=== PATIENT | female | born 1980 | race Caucasian/White ===

== ENCOUNTER → 2016-08-27 | Outpatient (CLI) | payer BC ==
[~2016-08-27] MED LIST: ADAL1KIT INJ; AYG/5 PO; DICL1SOL6 TOP; EPP3/2 IM; IBUP-103 PO; METH4TAB31 PO; MULT-506 PO; OXYC-57 PO; VNTHFA/IN INH
[2016-08-27 13:31] LABS: BASO % 0.1 %; BASO ABS # 0.01 K/uL (0-0.2); COMPLETE YES; IG% 0.3 %; LYMPH % 14.9 %; LYMPH ABS # 1.71 K/uL (1.2-3.4); MEAN CELL VOLUME 89.7 fL (80-100); MEAN CORPUSCULAR HEMOGLOBIN 31.7 pg (25-34); MEAN CORPUSCULAR HGB CONC 35.4 g/dl (32-36); MEAN PLATELET VOLUME 9.8 fL (7.4-10.4); NEUT % 81.7 %; PLATELET COUNT 261 K/uL (130-400); RED BLOOD COUNT 4.57 M/uL (4.2-5.4); WHITE BLOOD COUNT 11.47 K/uL (4.8-10.8)
[2016-08-27 13:48] LABS: ALT/SGPT 18 U/L (12-78); BLOOD UREA NITROGEN 15 mg/dl (7-18); BUN/CREATININE RATIO 22.6 (10-20); CALCIUM 8.9 mg/dl (8.5-10.1); CARBON DIOXIDE 23 mmol/L (21-32); CHLORIDE 108 mmol/L (98-107); CHOLESTEROL 230 mg/dl (0-200); CREATININE 0.66 mg/dl (0.60-1.20); GLUCOSE 117 mg/dl (70-99); POTASSIUM 4.8 mmol/L (3.5-5.1); SODIUM 141 mmol/L (136-145)
[2016-08-27 13:55] LABS: ALKALINE PHOSPHATASE 78 U/L (45-117); AST/SGOT 10 U/L (15-37); CHOLESTEROL/HDL RATIO 2.6; HDL CHOLESTEROL 90 mg/dl; LDL CHOLESTEROL CALCULATED 130 mg/dl; TRIGLYCERIDES 48 mg/dl (0-150); VERY LOW DENSITY LIPOPROT CALC 10 mg/dl
[2016-08-28 05:43] LABS: ESTIMATED AVERAGE GLUCOSE 97 mg/dl; HA1C FLAG Normal (Normal)
== END | disposition home or self-care (01) ==
LOC: C.LABBC 11:13
PROVIDERS: ATTEND Internal Medicine Geriatric Medicine
DX: R73.9 Hyperglycemia, unspecified (principal); M06.9 Rheumatoid arthritis, unspecified

== ENCOUNTER → 2016-11-17 | Outpatient (CLI) | payer BC ==
[~2016-11-17] MED LIST changes: +ACET-1256 PO; +ACET-24 PO; +HYG25 PO; +METH1TAB81 PO; +NRV5 PO; +RBX500 PO; +SPR25 PO; +VTMD1000 PO
== END ==
LOC: C.PATHSPEC 17:39
PROVIDERS: ATTEND Orthopaedic Surgery Sports Medicine
DX: M06.9 Rheumatoid arthritis, unspecified (principal); M65.9 Synovitis and tenosynovitis, unspecified

== ENCOUNTER → 2017-01-27 | Outpatient (CLI) | payer BC ==
[~2017-01-27] MED LIST changes: -ACET-1256 PO; -ACET-24 PO; -NRV5 PO; -RBX500 PO; -SPR25 PO; -VTMD1000 PO
--- NOTE | 2017-01-27 13:07 | MAMMOGRAPHY REPORT ---
BILATERAL DIGITAL DIAGNOSTIC MAMMOGRAM TOMOSYNTHESIS WITH CAD AND TARGETED RIGHT ULTRASOUND: 7 CLINICAL HISTORY: 36-year-old woman presents with a BB sized lump under the right breast that she not iced since June 2016. She reports that has slightly increased and is now pea-sized; it is also p ainful and there is surrounding redness. No nipple discharge. Family history of breast cancer = wisam ta grandmother. Patient on chronic steroids for arthritis. TECHNIQUE: Bilateral breast tomosynthesis in addition to standard 2D mammography was performed. Curre nt study was also evaluated with a Computer Aided Detection (CAD) system. COMPARISON: Comparison is made to exams dated: 10/23/2015 ultrasound and 10/23/2015 mammogram - [facility]. BREAST COMPOSITION: The tissue of both breasts is heterogeneously dense, which may obscure small mas ses. FINDINGS: A triangular skin palpable marker overlies the lower inner posterior right breast, denoting the palpable lump pointed out by the patient. Possible borders of a 4 mm masses are seen near the t riangle marker and partially obscured by it. No other suspicious mass, focal area of architectural d istortion or suspicious calcifications are identified bilaterally. There is stable focal asymmetry i n the right upper outer quadrant, most likely representing the patient's baseline parenchymal pattern . Targeted ultrasound was performed in the area of palpable lump pointed out by the patient (4:00 right breast, far medial near mid sternal line) no skin erythema is appreciated on visual inspection. On palpation, there is a BB sized firm mass. On ultrasound, there is an intradermal circumscribed hypoe choic mass measuring 4.3 x 3.4 x 4.5 mm and a faint punctum is seen extending towards the dermis. Th is is most compatible with an epidermal inclusion cyst. Conservative therapy with hot compresses and NSAIDs is recommended. IMPRESSION: ACR BI-RADS CATEGORY 2: BENIGN, TARGETED ULTRASOUND ACR BI-RADS CATEGORY 2: BENIGN 1. The palpable lump in the 4:00 medial right breast is most compatible with an epidermal inclusion cyst. Given that it is painful, conservative management with hot compresses and NSAIDs was recommend ed. Continued clinical monitoring is also recommended, as sometimes these lesions do not spontaneous ly resolve and may need surgical excision. 2. No other significant interval change is identified mammographically, without mammographic evidenc e of malignancy. Recommend routine mammography beginning at age 40. These results and recommendations were discussed with the patient at the time of the exam. Approximately 10% of breast cancers are not detected with mammography. A negative mammographic report should not delay biopsy if a clinically suggestive mass is present. Vesta Renteria M.D. ay/:01/27/2017 10:58:06 Wedding Designer: Eliza Aguero, [facility] letter sent: Normal 1/2 BI-RADS Code: ACR BI-RADS Category 2: Benign Ultrasound BI-RADS: ACR BI-RADS Category 2: Benign
== END | disposition home or self-care (01) ==
LOC: C.MAMM 08:42
PROVIDERS: ATTEND Physician Assistant Medical
DX: N63 Unspecified lump in breast (principal); N64.4 Mastodynia

== ENCOUNTER → 2017-02-20 | Outpatient (CLI) | payer BC ==
[~2017-02-20] MED LIST changes: +ACET-1256 PO
== END | disposition home or self-care (01) ==
LOC: C.LABSPEC 17:43
PROVIDERS: ATTEND Physician Assistant
DX: N92.6 Irregular menstruation, unspecified (principal)

== ENCOUNTER → 2017-04-01 | Day surgery (SDC) | payer BC ==
[2017-03-18 15:53] VITALS: Ht 174 cm; Wt 87.3 kg
[~2017-04-01] VITALS: Ht 174 cm; Wt 87.3 kg
[~2017-04-01] MED LIST changes: +ACET-24 PO; +ATROPINE SULFATE 0.1 MG/ML 5ML SYR IV PRN; +BRIMONIDINE TART 0.2% OP SOLN PER DROP CHARGE ONE; +DEXAMETHASONE SOD INJ 4 MG/ML VIAL ONE; +EpHEDrine SULFATE INJ 50 MG/ML AMP IV PRN; +EpINEphrine INJ 1MG/ML AMP 1 MG/ML AMP ONE; +FENTANYL CITRATE INJ 50 MCG/1 ML 2 ML VIAL IV PRN; +FENTANYL CITRATE INJ 50 MCG/1 ML 2 ML VIAL ONE; +IBUPROFEN 600 MG TAB PO PRN; +KETOROLAC TROMETHAMINE 30 MG/ML VIAL IV. PRN; +KETOROLAC TROMETHAMINE 30 MG/ML VIAL ONE; +LACTATED RINGER'S 1000ML 1,000 ML IV SCH; +LIDOCAINE 4% OP SOLN DROP CHARGE ONE; +LIDOCAINE HCL 1% MPF 2 ML VIAL ONE; +LIDOCAINE HCL 2% 2 ML VIAL (20MG/ML) ONE; +LIDOCAINE/EPINEPHRINE 1% INJ 50 ML VIAL ONE; +MIDAZOLAM HCL 1 MG/ML 2ML VIAL ONE; +MOXIFLOXACIN OPH SOLN PER DROP CHARGE ONE; +NRV5 PO; +ONDANSETRON INJ 2 MG/ML 2 ML VIAL IV PRN; +ONDANSETRON INJ 2 MG/ML 2 ML VIAL ONE; +OXYCODONE/ACETAMINOPHEN 5-325 TAB PO PRN; +POVIDONE-IODINE OP SOLN 30 ML BTL ONE; +PROMETHAZINE HCL INJ 25 MG in SODIUM CHLORIDE 0.9% 50ML 50 ML IV PRN; +PROPOFOL IV EMULSION 10 MG/ML 20 ML VIAL IV ONE; +RBX500 PO; +SCOPOLAMINE 1.5 MG TDSY TD ONE; +SODIUM CHLORIDE 0.9% 1000ML 1,000 ML IV SCH; +SPR25 PO; +TOBRAMYCIN/DEXAMETHASONE OPH OINT PER APPLN CHARGE ONE; +VTMD1000 PO
--- NOTE | 2017-04-01 12:17 | History & Physical Bridge - [place] ---
H&P Re-Evaluation Bridge Note: I have examined the patient, reviewed the History & Physical and in the interval since the performance of the History & Physical I have noted the following changes of clinical significance: No changes noted
--- NOTE | 2017-04-01 12:18 | Discharge Instructions ---
Discharge Instructions Date of Service Apr 01, 2017. Admission Reason for Admission: Endometrial Polyp, Leiomyoma Discharge Discharge Diagnosis / Problem: endometrial mass Discharge Goals Goal(s): Routine recovery after surgery Activity Recommendations Activity Limitations: per Instructions/Follow-up section . Instructions / Follow-Up Instructions / Follow-Up ACTIVITY RECOMMENDATIONS: * Avoid tampons, douching, hot tubs, pools, and intercourse until bleeding has stopped. * May shower as usual. * No strenuous activity for 24-48 hours. After 24-48 hours, you may do anything you feel like doing (driving and sports are okay). SPECIAL CARE INSTRUCTIONS: Special Diet: * Mild nausea may occur in the immediate post-operative period. * Take clear liquids such as tea, cola or bouillon until all nausea has subsided; you may then resume your normal diet. Special Care: * Light bleeding and vaginal spotting can last from a few days to 3-4 weeks. Call your doctor if bleeding becomes heavier than the heaviest part of your period. * Check your temperature twice a day for one week. If it goes above 100.4 degrees Fahrenheit (38.0 Celsius), notify your doctor. * Call your doctor's office for an appointment for 6 weeks after your surgery. FOLLOW-UP VISIT: Call your doctor's office for an appointment for 6 weeks after your surgery. Current Hospital Diet Patient's current hospital diet: Discharge Diet Recommended Diet: Regular Diet Pending Studies Studies pending at discharge: no Medical Emergencies . Who to Call and When: Medical Emergencies: If at any time you feel your situation is an emergency, please call 911 immediately. . Non-Emergent Contact Non-Emergency issues call your: Mental Health Orderly . . "Provider Documentation" section prepared by Corey Garcia. . VTE Core Measure Inpt VTE Proph given/why not?: Treatment not indicated
--- NOTE | 2017-04-01 13:54 | [facility] Post Operative Brief Note ---
Immediate Operative Summary Operative Date Apr 01, 2017. Pre-Operative Diagnosis Endometrial Polyp, Leiomyoma Post-Operative Diagnosis Same Procedure(s) Performed Dilatation And Curettage, Hysteroscopy, Polypectomy With Myosure Surgeon Dr. Garcia Film Archivist Surgeon(s) None Estimated Blood Loss 5ml Findings Possible cervical polyp Specimens A.) Endometrial Curettings Drains None Anesthesia Sedation, local Complication(s) None Disposition Recovery Room / PACU
[2017-04-01 14:00] VITALS: TEMP 36.8
--- NOTE | 2017-04-01 14:28 | Anesthesia Progress Nt - [facility] ---
Anesthesia Post Op Note Date & Time Apr 01, 2017 at 14:27 Vital Signs Vital Signs Past 12 Hours Date Time Temp Pulse Resp B/P (MAP) Pulse Ox O2 Delivery O2 Flow Rate FiO2 04/01/17 14:00 36.8 76 16 144/81 (102) 98 Room Air 04/01/17 11:52 37.2 74 16 152/85 (107) 96 Room Air Notes Mental Status: alert / awake / arousable, participated in evaluation Pt Amnestic to Procedure: Yes Nausea / Vomiting: adequately controlled Pain: adequately controlled Airway Patency, RR, SpO2: stable & adequate BP & HR: stable & adequate Hydration State: stable & adequate Anesthetic Complications: no major complications apparent
[2017-04-01 14:35] VITALS: BP 135/84; PULSE 69; O2SAT 97
--- NOTE | 2017-04-01 21:05 | OPERATIVE REPORT ---
DATE OF OPERATION: 04/01/2017 PREOPERATIVE DIAGNOSIS: Possible endocervical polyp. POSTOPERATIVE DIAGNOSIS: Same. PROCEDURE: Hysteroscopy, resection of small endocervical mass. SURGEON: Dr. Garcia. ANESTHETIC: Sedation and local 1% lidocaine with epinephrine. COMPLICATIONS: None. ESTIMATED BLOOD LOSS: 5 mL. LOSSES OF NORMAL SALINE: 170 mL. SPECIMENS: MyoSure specimen of endocervix. DRAINS: None. DISPOSITION: Recovery room. DESCRIPTION OF PROCEDURE: Dung was given sedation anesthetic and prepped and draped in the usual fashion. We injected local anesthetic 1% lidocaine with epinephrine into the cervix and then dilated the cervix after grasping with a single tooth tenaculum. It should be noted, we drained the bladder too with a catheter in and out prior to the procedure. Uterus was slightly anteverted. After dilating the cervix up to a 25 dilator, I visualized with the MyoSure hysteroscope using normal saline as a base solution. I did see some material in the cervix, possibly consistent with a polyp, but it was fairly friable and actually disappeared fairly quickly with touching up the MyoSure. It may have just been tissue, endometrium, polyp. In any case, after sterilely looking around, identifying both tubal ostia, identifying no other pathology in the uterus, a possible indentation of the very fundal area anteriorly of the uterus, possible fibroid; however, not resectable as it was primarily non-intracavitary. Otherwise, again perfectly normal, looked around carefully, had already MyoSure remove the specimen in the cervix. At the end of the procedure, sponge and instrument counts were correct. The patient was sent to recovery room in stable condition. I attest to the content of the Intraoperative Record and any orders documented therein. Any exceptions are noted below. GERMÁND
== END | disposition home or self-care (01) ==
LOC: X.SURG 11:28
PROVIDERS: ATTEND Obstetrics & Gynecology
DX: N84.0 Polyp of corpus uteri (principal); I10 Essential (primary) hypertension; M06.9 Rheumatoid arthritis, unspecified; Z82.49 Family history of ischemic heart disease and other diseases of the circulatory system; Z83.6 Family history of other diseases of the respiratory system; Z84.1 Family history of disorders of kidney and ureter; Z83.3 Family history of diabetes mellitus; Z83.79 Family history of other diseases of the digestive system; Z79.4 Long term (current) use of insulin; Z79.899 Other long term (current) drug therapy

== ENCOUNTER 2017-04-07 16:06 | Emergency (ER) | payer BC ==
[~2017-04-07] VITALS: Ht 175.3 cm; Wt 92.1 kg
[~2017-04-07 16:06] MED LIST changes: -ACET-1256 PO; -ACET-24 PO; -ATROPINE SULFATE 0.1 MG/ML 5ML SYR IV PRN; -AYG/5 PO; -BRIMONIDINE TART 0.2% OP SOLN PER DROP CHARGE ONE; -DEXAMETHASONE SOD INJ 4 MG/ML VIAL ONE; -EPP3/2 IM; -EpHEDrine SULFATE INJ 50 MG/ML AMP IV PRN; -EpINEphrine INJ 1MG/ML AMP 1 MG/ML AMP ONE; -FENTANYL CITRATE INJ 50 MCG/1 ML 2 ML VIAL IV PRN; -FENTANYL CITRATE INJ 50 MCG/1 ML 2 ML VIAL ONE; -HYG25 PO; -IBUPROFEN 600 MG TAB PO PRN; -KETOROLAC TROMETHAMINE 30 MG/ML VIAL IV. PRN; -KETOROLAC TROMETHAMINE 30 MG/ML VIAL ONE; -LACTATED RINGER'S 1000ML 1,000 ML IV SCH; -LIDOCAINE 4% OP SOLN DROP CHARGE ONE; -LIDOCAINE HCL 1% MPF 2 ML VIAL ONE; -LIDOCAINE HCL 2% 2 ML VIAL (20MG/ML) ONE; -LIDOCAINE/EPINEPHRINE 1% INJ 50 ML VIAL ONE; -METH1TAB81 PO; -MIDAZOLAM HCL 1 MG/ML 2ML VIAL ONE; -MOXIFLOXACIN OPH SOLN PER DROP CHARGE ONE; -NRV5 PO; -ONDANSETRON INJ 2 MG/ML 2 ML VIAL IV PRN; -ONDANSETRON INJ 2 MG/ML 2 ML VIAL ONE; -OXYCODONE/ACETAMINOPHEN 5-325 TAB PO PRN; -POVIDONE-IODINE OP SOLN 30 ML BTL ONE; -PROMETHAZINE HCL INJ 25 MG in SODIUM CHLORIDE 0.9% 50ML 50 ML IV PRN; -PROPOFOL IV EMULSION 10 MG/ML 20 ML VIAL IV ONE; -RBX500 PO; -SCOPOLAMINE 1.5 MG TDSY TD ONE; -SODIUM CHLORIDE 0.9% 1000ML 1,000 ML IV SCH; -SPR25 PO; -TOBRAMYCIN/DEXAMETHASONE OPH OINT PER APPLN CHARGE ONE; -VTMD1000 PO
[2017-04-07 16:19] VITALS: TEMP 37; Ht 175.3 cm; Wt 92.1 kg
[2017-04-07 17:38] VITALS: O2SAT 95
[2017-04-07] MEDS ORDERED: EPP3/2 IM (17:42)
[2017-04-07 18:03] LABS: BASO % 0.2 %; BASO ABS # 0.02 K/uL (0-0.2); COMPLETE YES; EOS % 1.3 %; HEMATOCRIT 39.6 % (37-47); IG% 0.1 %; LYMPH % 29.2 %; LYMPH ABS # 2.45 K/uL (1.2-3.4); MEAN CELL VOLUME 92.5 fL (80-100); MEAN CORPUSCULAR HEMOGLOBIN 31.5 pg (25-34); MEAN CORPUSCULAR HGB CONC 34.1 g/dl (32-36); MONO % 8.3 %; NEUT % 60.9 %; PLATELET COUNT 294 K/uL (130-400); RED BLOOD COUNT 4.28 M/uL (4.2-5.4); WHITE BLOOD COUNT 8.39 K/uL (4.8-10.8)
[2017-04-07] MEDS ORDERED: SODIUM CHLORIDE 0.9% 500ML 500 ML IV STA (18:05)
[2017-04-07] MEDS ORDERED: KETOROLAC TROMETHAMINE 30 MG/ML VIAL IV STA (18:05)
[2017-04-07 18:12] LABS: PROTHROMBIN TIME (PATIENT) 10.5 SECONDS (9.0-12.0)
[2017-04-07] MEDS ORDERED: NORETHINDRONE ACETATE 5 MG TAB PO STA (18:20)
--- NOTE | 2017-04-07 18:21 | EMERGENCY ROOM VISIT NOTE ---
History Report prepared by Mallorie: Charlotte Bernal Under the Supervision of: Dr. Conner Tatum M.D. First contact with patient: 17:12 Chief Complaint: VAGINAL BLEEDING Stated Complaint: HEAVY BLEEDING,CLOTTING,POST DNC History of Present Illness The patient is a 36 year old female who presents to the Emergency Room with complaints of persistent vaginal bleeding starting 3 days ago. The patient had a D&C 6 days ago which went well. She had some polyps removed. She did not have much bleeding in the days directly following the procedure. Three days ago, she started having cramping in her left abdomen located near her ovary. That night, she started having some vaginal bleeding. By the next morning, she was soaking 1 pad every 2 hours. She called her doctor today and was told to present to the ED. She is feeling fatigued. She has a history of endometriosis. Source of History: patient Onset: 3 days ago Position: other (vaginal) Symptom Intensity: 1 pad every 2 hours Quality: other (bleeding) Timing: other (persistent) Associated Symptoms: + abdominal pain Review of Systems See HPI for pertinent positives & negatives. A total of 10 systems reviewed and were otherwise negative. Past Medical & Surgical Medical Problems: (1) Pauciarticular juvenile rheumatoid arthritis Surgical Problems: (1) Previous section Family History Patient reports no known family medical history. Social History Smoking Status: Never Smoker Alcohol Use: none Drug Use: none Marital Status: Housing Status: lives with family Occupation Status: employed Current/Historical Medications Scheduled Adalimumab (Humira), 40 MG INJ [id number] Methylprednisolone (Medrol), 4 MG PO BID Multivitamin (Multivitamin), 1 TAB PO QAM Norethindrone Acetate (Aygestin), 1 TAB PO DAILY Scheduled PRN Albuterol Hfa (Ventolin Hfa), 2-4 PUFFS INH Q6H PRN for Shortness of Breath Diclofenac Sodium (Topical) (Pennsaid), 1 APPLN TOP UD PRN for Pain Epinephrine (Epipen), 0.3 MG IM UD PRN for ALLERGIC REACTION Ibuprofen Tab (Advil), 400-600 MG PO Q6H PRN for Pain Oxycodone/Acetaminophen 5MG/325MG (Percocet 5MG/325MG), 1 TABLET PO Q4H PRN for Pain Allergies Coded Allergies: BEE STING (Verified Allergy, Severe, ANAPHYLAXIS, 04/01/17) NO KNOWN DRUG ALLERGIES (Verified Allergy, Unknown, ., 04/01/17) Physical Exam Vital Signs Date Time Temp Pulse Resp B/P (MAP) Pulse Ox O2 Delivery O2 Flow Rate FiO2 04/07/17 19:29 81 18 145/90 97 04/07/17 18:35 70 20 135/84 96 Room Air 04/07/17 18:01 83 04/07/17 17:38 95 Room Air 04/07/17 16:19 37.0 88 20 155/87 97 Room Air Physical Exam GENERAL: Patient is a healthy-appearing well-nourished female HEAD: Normocephalic atraumatic EYES: Ocular movements intact pupils equal and react to light OROPHARYNX mucous membranes are moist no exudates present no erythema or edema present NECK: Supple no nuchal rigidity CHEST: Good equal expansion LUNGS: Clear and equal to auscultation CARDIAC: Normal S1 and S2 ABDOMEN: Soft nontender no guarding BACK: No CVA tenderness PELVIS: Moderate amount of blood in the vaginal vault. EXTREMITIES: No pain upon palpation normal muscle strength in all groups no clubbing cyanosis or edema NEURO: Patient is following commands and answering questions appropriately. Alert and oriented x3 Cranial Nerves 2-12 grossly intact Medical Decision & Procedures Laboratory Results 04/07/17 17:40 Red Blood Count 4.28, Mean Corpuscular Volume 92.5, Mean Corpuscular Hemoglobin 31.5, Mean Corpuscular Hemoglobin Concent 34.1, Mean Platelet Volume 9.0, Neutrophils (%) (Auto) 60.9, Lymphocytes (%) (Auto) 29.2, Monocytes (%) (Auto) 8.3, Eosinophils (%) (Auto) 1.3, Basophils (%) (Auto) 0.2, Neutrophils # (Auto) 5.10, Lymphocytes # (Auto) 2.45, Monocytes # (Auto) 0.70, Eosinophils # (Auto) 0.11, Basophils # (Auto) 0.02 04/07/17 17:40 Test 04/07/17 17:40 04/07/17 19:23 White Blood Count 8.39 K/uL (4.8-10.8) Red Blood Count 4.28 M/uL (4.2-5.4) Hemoglobin 13.5 g/dL (12.0-16.0) Hematocrit 39.6 % (37-47) Mean Corpuscular Volume 92.5 fL (80-100) Mean Corpuscular Hemoglobin 31.5 pg (25-34) Mean Corpuscular Hemoglobin Concent 34.1 g/dl (32-36) Platelet Count 294 K/uL (130-400) Mean Platelet Volume 9.0 fL (7.4-10.4) Neutrophils (%) (Auto) 60.9 % Lymphocytes (%) (Auto) 29.2 % Monocytes (%) (Auto) 8.3 % Eosinophils (%) (Auto) 1.3 % Basophils (%) (Auto) 0.2 % Neutrophils # (Auto) 5.10 K/uL (1.4-6.5) Lymphocytes # (Auto) 2.45 K/uL (1.2-3.4) Monocytes # (Auto) 0.70 K/uL (0.11-0.59) Eosinophils # (Auto) 0.11 K/uL (0-0.5) Basophils # (Auto) 0.02 K/uL (0-0.2) RDW Standard Deviation 41.5 fL (36.4-46.3) RDW Coefficient of Variation 12.2 % (11.5-14.5) Immature Granulocyte % (Auto) 0.1 % Immature Granulocyte # (Auto) 0.01 K/uL (0.00-0.02) Prothrombin Time 10.5 SECONDS (9.0-12.0) Prothromb Time International Ratio 1.0 (0.9-1.1) Activated Partial Thromboplast Time 27.1 SECONDS (21.0-31.0) Partial Thromboplastin Ratio 1.0 Anion Gap 9.0 mmol/L (3-11) Est Creatinine Clear Calc Drug Dose 131.2 ml/min Estimated GFR () 126.1 Estimated GFR (Non- 108.8 BUN/Creatinine Ratio 18.5 (10-20) Calcium Level 8.7 mg/dl (8.5-10.1) Total Bilirubin 0.3 mg/dl (0.2-1) Aspartate Amino Transf (AST/SGOT) 12 U/L (15-37) Alanine Aminotransferase (ALT/SGPT) 13 U/L (12-78) Alkaline Phosphatase 76 U/L (45-117) Total Protein 7.0 gm/dl (6.4-8.2) Albumin 3.3 gm/dl (3.4-5.0) Globulin 3.7 gm/dl (2.5-4.0) Albumin/Globulin Ratio 0.9 (0.9-2) Urine Color YELLOW Urine Appearance CLEAR (CLEAR) Urine pH 5.0 (4.5-7.5) Urine Specific [place] 1.023 (1.000-1.030) Urine Protein NEG (NEG) Urine Glucose (UA) NEG (NEG) Urine Ketones NEG (NEG) Urine Occult Blood 3+ (NEG) Urine Nitrite NEG (NEG) Urine Bilirubin NEG (NEG) Urine Urobilinogen NEG (NEG) Urine Leukocyte Esterase NEG (NEG) Urine WBC (Auto) 1-5 /hpf (0-5) Urine RBC (Auto) 0-4 /hpf (0-4) Urine Hyaline Casts (Auto) 1-5 /lpf (0-5) Urine Epithelial Cells (Auto) 20-30 /lpf (0-5) Urine Bacteria (Auto) NEG (NEG) Urine Test NEG (NEG) Labs reviewed by ED physician. Medications Administered Medications (Trade) Dose Ordered Sig/[place] Route Start Time Stop Time Status Last Admin Dose Admin Ketorolac Tromethamine (Toradol Inj) 30 mg NOW STAT IV 04/07/17 18:05 04/07/17 18:06 DC 04/07/17 18:32 30 MG Sodium Chloride 500 ml @ 999 mls/hr Q31M STAT IV 04/07/17 18:05 04/07/17 18:35 DC 04/07/17 18:32 999 MLS/HR Norethindrone Acetate (Aygestin Tab) 10 mg NOW STAT PO 04/07/17 18:20 04/07/17 18:21 DC 04/07/17 19:17 10 MG ED Course 1720: Past medical records reviewed. The patient was evaluated in room C8. A complete history and physical examination was performed. 1805: NSS 500 ml @ 999 mls/hr IV, Toradol Inj 30 mg IV. 3: I performed a pelvic exam in the presence of a female nurse glass blowing lathe operator. Findings are listed in the exam. 8: I discussed the patient's case with Dr. [place] [facility]. He recommend the patient be started on Aygestin and take ibuprofen as needed. She can follow up in the office as an outpatient. 1819: Aygestin Tab 10 mg PO. 1824: Upon reexamination the patient is resting comfortably. I discussed results and treatment plan with the patient. She verbalizes agreement and understanding. The patient is ready for discharge. Medical Decision Differential diagnosis: Etiologies such as ectopic , dysfunction uterine bleeding, bleeding dyscrasia, trauma, infection, as well as others were entertained. This is a 36-year-old female who presents emergency Department with heavy vaginal bleeding. On physical exam the patient has a moderate amount of blood in the vaginal vault. An IV was established, the patient given Toradol. I did discuss the case with gynecology as the patient has a normal hemoglobin. We both felt that the patient can be placed on Aygestin and can follow-up as an outpatient. Patient and were in agreement with the treatment plan. Medication Reconcilliation Current Medication List: was personally reviewed by me Blood Pressure Screening Patient's blood pressure: Elevated blood pressure Blood pressure disposition: Referred to PCP Consults Time Called: 1814 Consulting Physician: Dr. Garcia [facility] [place] Returned Call: [phone] I discussed the patient's case with him. He recommend the patient be started on Aygestin and take ibuprofen as needed. She can follow up in the office as an outpatient. Impression Primary Impression: Abnormal vaginal bleeding Scribe Attestation The scribe's documentation has been prepared under my direction and personally reviewed by me in its entirety. I confirm that the note above accurately reflects all work, treatment, procedures, and medical decision making performed by me. Departure Information Dispostion Home / Self-Care Prescriptions Norethindrone Acetate (AYGESTIN) 5 Mg Tab 1 TAB PO DAILY for 10 Days, #10 TAB Prov: Conner Tatum MD 04/07/17 Referrals Caesar Mariscal M.D. (PCP) Renny Garcia M.D. Forms HOME CARE DOCUMENTATION FORM, IMPORTANT VISIT INFORMATION, WORK / SCHOOL INSTRUCTIONS Patient Instructions ED Bleed Irregular Vaginal, My [facility] Additional Instructions Follow up with DR Garcia's office Take 600 mg Ibuprofen every 6 hours You have been examined and treated today on an emergency basis only. This is not a substitute for, or an effort to provide, complete comprehensive medical care. It is impossible to recognize and treat all injuries or illnesses in a single emergency department visit. It is therefore important that you follow up closely with Dr Mariscal. Call as soon as possible for an appointment. Thank you for your time and consideration. I look forward to speaking with you again soon. Please don't hesitate to call us if you have any questions.
[2017-04-07 18:29] LABS: BUN/CREATININE RATIO 18.5 (10-20); CALCIUM 8.7 mg/dl (8.5-10.1); CREATININE 0.71 mg/dl (0.60-1.20)
[2017-04-07 18:31] LABS: ALB/GLOB RATIO 0.9 (0.9-2)
[2017-04-07] MEDS ORDERED: AYG/5 PO (18:33)
[2017-04-07 19:29] VITALS: BP 145/90; PULSE 81; O2SAT 97
[2017-04-07 19:37] LABS: URINE APPEARANCE CLEAR (CLEAR); URINE BILIRUBIN NEG (NEG); URINE COLOR YELLOW; URINE EPITHELIAL CELL AUTO 20-30 /lpf (0-5); URINE NITRITE NEG (NEG); URINE SPECIFIC GRAVITY 1.023 (1.000-1.030); UROBILINOGEN NEG (NEG)
[2017-04-07 19:40] LABS: MANUAL MICROSCOPIC REQUIRED? NO; REVIEW REQ? NO
== END 2017-04-07 19:30 | disposition home or self-care (01) ==
LOC: C.EDB 16:07 → C.EDC 19:30
DX: N93.9 Abnormal uterine and vaginal bleeding, unspecified (principal); M08.00 Unspecified juvenile rheumatoid arthritis of unspecified site

== ENCOUNTER 2017-04-23 14:47 | Observation (INO) | payer BC ==
[~2017-04-23] VITALS: Ht 175.3 cm; Wt 91.1 kg
[~2017-04-23 14:47] MED LIST changes: +EPP3/2 IM
[2017-04-23] MEDS ORDERED: METH1TAB81 PO (15:11)
[2017-04-23] MEDS ORDERED: MULT-506 PO (15:11)
[2017-04-23] MEDS ORDERED: HYG25 PO (15:11)
[2017-04-23] MEDS ORDERED: HYDROmorphone INJ 1 MG/ML SYR IV STA ×3 (15:26→18:21)
[2017-04-23] MEDS ORDERED: LABETALOL HCL IV 5 MG/ML 20ML IV STA (15:26)
--- NOTE | 2017-04-23 15:48 | DIAGNOSTIC IMAGING REPORT ---
CHEST ONE VIEW PORTABLE CLINICAL HISTORY: Atypical chest pain COMPARISON STUDY: 01/19/2016 FINDINGS: The cardiac and mediastinal contours are normal. There is no evidence of focal pulmonary consolidation. There is no evidence of failure. No pleural effusions are visualized.[ IMPRESSION: No active disease in the chest. Electronically signed by: Anthony Molina M.D. 04/23/2017 3:46 PM Dictated Date/Time: 04/23/2017 3:46 PM
[2017-04-23 16:03] LABS: BASO % 0.4 %; BASO ABS # 0.04 K/uL (0-0.2); COMPLETE YES; EOS % 3.1 %; HEMATOCRIT 42.3 % (37-47); IG% 0.1 %; LYMPH % 41.1 %; LYMPH ABS # 4.06 K/uL (1.2-3.4); MEAN CELL VOLUME 90.2 fL (80-100); MEAN CORPUSCULAR HGB CONC 35.5 g/dl (32-36); MEAN PLATELET VOLUME 8.9 fL (7.4-10.4); MONO % 9.4 %; NEUT % 45.9 %; PLATELET COUNT 292 K/uL (130-400); RED BLOOD COUNT 4.69 M/uL (4.2-5.4); WHITE BLOOD COUNT 9.87 K/uL (4.8-10.8)
[2017-04-23 16:23] LABS: BLOOD UREA NITROGEN 13 mg/dl (7-18); BUN/CREATININE RATIO 17.5 (10-20); CALCIUM 8.7 mg/dl (8.5-10.1); CARBON DIOXIDE 25 mmol/L (21-32); CHLORIDE 103 mmol/L (98-107); CREATININE 0.73 mg/dl (0.60-1.20); GLUCOSE 91 mg/dl (70-99); POTASSIUM 3.5 mmol/L (3.5-5.1); SODIUM 137 mmol/L (136-145)
[2017-04-23 16:28] LABS: C-REACTIVE PROTEIN 0.36 mg/dl (0-0.29)
--- NOTE | 2017-04-23 16:53 | DIAGNOSTIC IMAGING REPORT ---
CT OF THE HEAD WITHOUT CONTRAST CLINICAL HISTORY: Headache. Hypertension. COMPARISON STUDY: Head CT February 03, 2009 and MRI of the brain September 12, 2010. CT DOSE: 537.48 mGy.cm TECHNIQUE: Helical axial images of the head were obtained without IV contrast. Automated exposure control was utilized for the study. A dose lowering technique was utilized adhering to the principles of ALARA. FINDINGS: No acute intracranial hemorrhage, midline shift or mass effect is present. Brain volume is normal. Ventricular system is normal. Basilar cisterns are patent. There are no extra-axial collections. Rodriguez-white differentiation is maintained. There are no findings to suggest acute dural sinus thrombosis or acute territorial infarct. There are no significant calvarial abnormalities. Visualized portions of the sinuses and mastoid air cells are clear. IMPRESSION: No acute intracranial findings. Electronically signed by: Omar Lira M.D. 04/23/2017 4:52 PM Dictated Date/Time: 04/23/2017 4:50 PM
[2017-04-23] MEDS ORDERED: ONDANSETRON INJ 2 MG/ML 2 ML VIAL IV STA ×2 (17:55→19:14)
[2017-04-23] MEDS ORDERED: METHYLPREDNISOLONE 125 MG VIAL IV STA (17:58)
--- NOTE | 2017-04-23 18:03 | EMERGENCY ROOM VISIT NOTE ---
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 I saw Dr. Mariscal on Thursday for heart fluttering, he started me on a low dose bp med. History of Present Illness The patient is a 36 year old female who presents to the Emergency Room with complaints of OWEN, chest pain and high blood pressure -Today pt describes dull, burning chest pain radiating up up her neck bilaterally -Pt describes a band-like and occipital headache. -Pt describes that she has been having symptoms leading up to today. -Pt says that she was seen by her PCP this week and diagnosed with high BP, started on meds. -Pt says that the chest pain is exacerbated by cough and deep inspiration -Pt has a PMHx of DVT with her first child. -Pt has a PMHx significant for RA. On Medrol and Humira. -Pt says that she has been having headaches and chest pain for the past 2 weeks and was worried it was related to RA. 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 Review of Systems see below Constitutional: No fever, No chills, No sweats Respiratory: No cough, No sputum, No wheezing, No shortness of breath Cardiovascular: + chest pain, No orthopnea, No edema, No palpitations Abdomen: + nausea, + vomiting, No diarrhea, No constipation Past Medical/Surgical History Medical Problems: (1) Chest pain (2) Headache (3) Pauciarticular juvenile rheumatoid arthritis Surgical Problems: (1) Previous section Family History Patient reports no known family medical history. Social History Smoking Status: Never Smoker Alcohol Use: none Drug Use: none Marital Status: Housing Status: lives with family Occupation Status: employed Current/Historical Medications Scheduled Adalimumab (Humira), 40 MG INJ WK Chlorthalidone (Chlorthalidone), 12.5 MG PO DAILY Methylprednisolone (Medrol), 8 MG PO DAILY Multivitamin (Multivitamin), 1 TAB PO DAILY Physical Exam Vital Signs Date Time Temp Pulse Resp B/P (MAP) Pulse Ox O2 Delivery O2 Flow Rate FiO2 04/23/17 19:45 71 97 10/12/17 19:32 171/98 04/23/17 19:30 100 16 97 04/23/17 19:15 70 16 150/91 04/23/17 19:00 77 19 04/23/17 18:45 68 13 04/23/17 17:58 77 20 153/98 97 Room Air 04/23/17 17:36 78 04/23/17 16:50 76 160/94 97 Room Air 04/23/17 16:15 86 20 160/106 98 Room Air 04/23/17 14:55 37.1 87 18 202/130 94 Room Air Physical Exam See below General Appearance: WD/WN, + mild distress Head: normocephalic, atraumatic Eyes: normal inspection, PERRL, EOMI, sclerae normal Neck: supple, no adenopathy Respiratory/Chest: chest non-tender, lungs clear, normal breath sounds, no respiratory distress, no accessory muscle use Cardiovascular: regular rate, rhythm, no edema, no gallop, no JVD, no murmur Medical Decision & Procedures Laboratory Results 04/23/17 15:51 Red Blood Count 4.69, Mean Corpuscular Volume 90.2, Mean Corpuscular Hemoglobin 32.0, Mean Corpuscular Hemoglobin Concent 35.5, Mean Platelet Volume 8.9, Neutrophils (%) (Auto) 45.9, Lymphocytes (%) (Auto) 41.1, Monocytes (%) (Auto) 9.4, Eosinophils (%) (Auto) 3.1, Basophils (%) (Auto) 0.4, Neutrophils # (Auto) 4.52, Lymphocytes # (Auto) 4.06, Monocytes # (Auto) 0.93, Eosinophils # (Auto) 0.31, Basophils # (Auto) 0.04 04/23/17 15:51 Test 04/23/17 15:47 04/23/17 15:51 Erythrocyte Sedimentation Rate 15 mm/hr (0-21) White Blood Count 9.87 K/uL (4.8-10.8) Red Blood Count 4.69 M/uL (4.2-5.4) Hemoglobin 15.0 g/dL (12.0-16.0) Hematocrit 42.3 % (37-47) Mean Corpuscular Volume 90.2 fL (80-100) Mean Corpuscular Hemoglobin 32.0 pg (25-34) Mean Corpuscular Hemoglobin Concent 35.5 g/dl (32-36) Platelet Count 292 K/uL (130-400) Mean Platelet Volume 8.9 fL (7.4-10.4) Neutrophils (%) (Auto) 45.9 % Lymphocytes (%) (Auto) 41.1 % Monocytes (%) (Auto) 9.4 % Eosinophils (%) (Auto) 3.1 % Basophils (%) (Auto) 0.4 % Neutrophils # (Auto) 4.52 K/uL (1.4-6.5) Lymphocytes # (Auto) 4.06 K/uL (1.2-3.4) Monocytes # (Auto) 0.93 K/uL (0.11-0.59) Eosinophils # (Auto) 0.31 K/uL (0-0.5) Basophils # (Auto) 0.04 K/uL (0-0.2) RDW Standard Deviation 40.0 fL (36.4-46.3) RDW Coefficient of Variation 12.3 % (11.5-14.5) Immature Granulocyte % (Auto) 0.1 % Immature Granulocyte # (Auto) 0.01 K/uL (0.00-0.02) Anion Gap 9.0 mmol/L (3-11) Est Creatinine Clear Calc Drug Dose 125.2 ml/min Estimated GFR () 121.9 Estimated GFR (Non- 105.2 BUN/Creatinine Ratio 17.5 (10-20) Calcium Level 8.7 mg/dl (8.5-10.1) Troponin I < 0.015 ng/ml (0-0.045) C-Reactive Protein 0.36 mg/dl (0-0.29) Thyroid Stimulating Hormone (TSH) 1.100 uIu/ml (0.300-4.500) Medications Administered Medications (Trade) Dose Ordered Sig/[place] Route Start Time Stop Time Status Last Admin Dose Admin Labetalol HCl (Normodyne IV) 10 mg NOW STAT IV 04/23/17 15:26 04/23/17 15:35 DC 04/23/17 16:09 10 MG Hydromorphone HCl (Dilaudid Inj) 1 mg NOW STAT IV 04/23/17 15:26 04/23/17 15:35 DC 10/12/17 16:10 1 MG Hydromorphone HCl (Dilaudid Inj) 1 mg NOW STAT IV 04/23/17 16:57 04/23/17 16:59 DC 04/23/17 17:07 1 MG Ondansetron HCl (Zofran Inj) 4 mg NOW STAT IV 04/23/17 17:55 04/23/17 17:56 DC 04/23/17 18:11 4 MG Methylprednisolone Sodium Succinate (Solu-Medrol IV) 125 mg NOW STAT IV 04/23/17 17:58 04/23/17 18:00 DC 04/23/17 18:11 125 MG Hydromorphone HCl (Dilaudid Inj) 1 mg NOW STAT IV 04/23/17 18:21 04/23/17 18:22 DC 04/23/17 18:27 1 MG ED Course 1500 history and physical performed 1526 labs ordered, pt given Dilaudid and labetalol 1600 CT ordered 1630 pt given another dose of Dilaudid for pain 1700 reaccessed BP 152/98, pt vomiting Medical Decision 36 F presents to ED with BP of 202/130, chest pain and OWEN -Considered the following differential: Hypertensive urgency, emergency, pulmonary embolism, migraine headache, venous sinus thrombosis and acute coronary syndrome -Pt BP decreased to 164/112 shortly after being roomed. -Pt was seen to have normal labs and EKG. No intracranial pathology on CT. -Pt BP decreased, but pt headache was intractable on Dilaudid -Pt also became nauseous began vomiting -Pt's symptoms likely related to high blood pressure -Pt ESR is WNL, but patient has noted increase in joint pain as of late. Symptoms possibly related to RA flare. -Considering patients PMHx of DVT and intractable OWEN, it is prudent to access patient further for venous sinus thrombosis. Impression Primary Impression: Intractable headache Departure Information Referrals Caesar Mariscal M.D. (PCP) Patient Instructions My [facility]
[2017-04-23] MEDS ORDERED: ACETAMINOPHEN 325 MG TAB PO PRN (19:15)
[2017-04-23] MEDS ORDERED: MAGNESIUM HYDROXIDE SUSP 30 ML UDC PO PRN (19:15)
[2017-04-23] MEDS ORDERED: HydrALAZINE HCL 20 MG/ML VIAL IV. PRN (19:15)
[2017-04-23] MEDS ORDERED: POLYETHYLENE (MIRALAX) 17 GM PACK PO PRN (19:15)
[2017-04-23] MEDS ORDERED: ONDANSETRON INJ 2 MG/ML 2 ML VIAL IV PRN (19:15)
[2017-04-23] MEDS ORDERED: SODIUM CHLORIDE 0.9% 1000ML 1,000 ML IV ONE (19:15)
[2017-04-23] MEDS ORDERED: ALUMINUM/MAGNESIUM/SIMETH (MAALOX MAX) 30 ML UDC PO PRN (19:15)
[2017-04-23] MEDS ORDERED: NITROGLYCERIN 0.4 MG SL PER TAB CHARGE SL PRN (19:15)
--- NOTE | 2017-04-23 19:47 | History and Physical ---
History & Physical Date & Time of Service: Apr 23, 2017 at 19:25 Chief Complaint: Chest Pain, Oneal, Ra Flair Primary Care Physician: Caesar Mariscal M.D. History of Present Illness Source: patient, clinic records, hospital records Patient is a pleasant 36 y/o female, with PMHx of RA and HTN, who presented to the ED because of generalized body pain and intractable headache w/ associate nausea. Patient states she underwent a hysteroscopy w/ endocervical mass resection on 04/01/17 due to continued vaginal bleeding. Due to this procedure, her RA medications were held. She admits to generalized body aches, greatest at bilateral hips. 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 The reason she came to the ED today was because of a severe headache w/ nausea. She was given IV Solu-Medrol + Dilaudid in ED with moderate relief in her symptoms. She also admits to centralized chest pain. She notes she usually gets chest pain w/ RA flair, but notes this pain is different because pain does not increase/decreased w/ movement. Discomfort is described as a pressure to left side of chest. Does not radiate. Denies any alleviating/ aggravating factors. Denies cardiac history. She did not take anything for her symptoms today prior to coming to ED. She notes that she recently discontinued Aygestin due to heavy vaginal bleeding since January. She denies any current bleeding. She was recently placed on BP medication- BP was 202/130 at arrival- treated w/ IV Labetalol. She is actively vomiting during interviewing patient. She believes vomiting is due to her headache, but also notes she gets very nauseous w/ IV pain medication. Patient denies any fever, chills, sweats, lightheadedness, dizziness, vision changes, CP, palpitations, edema, SOB, wheezing, cough, abdominal pain, diarrhea, urinary symptoms, melena, numbness/ tingling, weakness, muscle/joint pain, anxiety/depression, active bleeding, or new skin discoloration/changes. Past Medical/Surgical History Medical Problems: RA HTN Surgical Problems: section s/p hysteroscopy w/ endocervical mass resection Family History Patient reports no known family medical history. Social History Smoking Status: Never Smoker Smokeless Tobacco Use: No Alcohol Use: none Drug Use: none Marital Status: Housing status: lives with family Occupational Status: employed Immunizations History of Influenza Vaccine: No Influenza Vaccine Date: May 13, 2010 History of Tetanus Vaccine?: Yes Tetanus Immunization Date: Mar 08, 2007 History of Pneumococcal: Unknown Pneumococcal Date: Apr 12, 2008 History of Hepatitis B Vaccine: Unknown Multi-Drug Resistant Organisms History of MDRO: Yes Type of MDRO: MRSA Allergies Coded Allergies: BEE STING (Verified Allergy, Severe, ANAPHYLAXIS, 04/23/17) NO KNOWN DRUG ALLERGIES (Verified Allergy, Unknown, ., 04/23/17) Home Medications Scheduled Adalimumab (Humira), 40 MG INJ WK Chlorthalidone (Chlorthalidone), 12.5 MG PO DAILY Methylprednisolone (Medrol), 8 MG PO DAILY Multivitamin (Multivitamin), 1 TAB PO DAILY Physical Exam Vital Signs Date Time Temp Pulse Resp B/P (MAP) Pulse Ox O2 Delivery O2 Flow Rate FiO2 04/23/17 17:58 77 20 153/98 97 Room Air 04/23/17 17:36 78 04/23/17 16:50 76 160/94 97 Room Air 04/23/17 16:15 86 20 160/106 98 Room Air 04/23/17 14:55 37.1 87 18 202/130 94 Room Air General Appearance: no apparent distress Head: normocephalic, atraumatic Eyes: normal inspection, PERRL ENT: hearing grossly normal Neck: supple Respiratory/Chest: lungs clear, normal breath sounds, no respiratory distress, no accessory muscle use Cardiovascular: regular rate, rhythm Abdomen/GI: normal bowel sounds, non tender, soft Back: normal inspection Extremities/Musculoskelatal: no calf tenderness, no pedal edema Neurologic/Psych: no motor/sensory deficits, alert, normal mood/affect, oriented x 3 Skin: normal color, warm/dry, no rash Diagnostics Laboratory Results Results Past 24 Hours Test 04/23/17 15:47 04/23/17 15:51 Range/Units Erythrocyte Sedimentation Rate 15 0-21 mm/hr White Blood Count 9.87 4.8-10.8 K/uL Red Blood Count 4.69 4.2-5.4 M/uL Hemoglobin 15.0 12.0-16.0 g/dL Hematocrit 42.3 37-47 % Mean Corpuscular Volume 90.2 80-100 fL Mean Corpuscular Hemoglobin 32.0 25-34 pg Mean Corpuscular Hemoglobin Concent 35.5 32-36 g/dl Platelet Count 292 130-400 K/uL Mean Platelet Volume 8.9 7.4-10.4 fL Neutrophils (%) (Auto) 45.9 % Lymphocytes (%) (Auto) 41.1 % Monocytes (%) (Auto) 9.4 % Eosinophils (%) (Auto) 3.1 % Basophils (%) (Auto) 0.4 % Neutrophils # (Auto) 4.52 1.4-6.5 K/uL Lymphocytes # (Auto) 4.06 1.2-3.4 K/uL Monocytes # (Auto) 0.93 0.11-0.59 K/uL Eosinophils # (Auto) 0.31 0-0.5 K/uL Basophils # (Auto) 0.04 0-0.2 K/uL RDW Standard Deviation 40.0 36.4-46.3 fL RDW Coefficient of Variation 12.3 11.5-14.5 % Immature Granulocyte % (Auto) 0.1 % Immature Granulocyte # (Auto) 0.01 0.00-0.02 K/uL Sodium Level 137 136-145 mmol/L Potassium Level 3.5 3.5-5.1 mmol/L Chloride Level 103 98-107 mmol/L Carbon Dioxide Level 25 21-32 mmol/L Anion Gap 9.0 3-11 mmol/L Blood Urea Nitrogen 13 7-18 mg/dl Creatinine 0.73 0.60-1.20 mg/dl Est Creatinine Clear Calc Drug Dose 125.2 ml/min Estimated GFR () 121.9 Estimated GFR (Non- 105.2 BUN/Creatinine Ratio 17.5 10-20 Random Glucose 91 70-99 mg/dl Calcium Level 8.7 8.5-10.1 mg/dl Troponin I < 0.015 0-0.045 ng/ml C-Reactive Protein 0.36 0-0.29 mg/dl Thyroid Stimulating Hormone (TSH) 1.100 0.300-4.500 uIu/ml Diagnostic Radiology CT OF THE HEAD WITHOUT CONTRAST CLINICAL HISTORY: Headache. Hypertension. COMPARISON STUDY: Head CT February 03, 2009 and MRI of the brain September 12, 2010. CT DOSE: 537.48 mGy.cm TECHNIQUE: Helical axial images of the head were obtained without IV contrast. Automated exposure control was utilized for the study. A dose lowering technique was utilized adhering to the principles of ALARA. FINDINGS: No acute intracranial hemorrhage, midline shift or mass effect is present. Brain volume is normal. Ventricular system is normal. Basilar cisterns are patent. There are no extra-axial collections. Rodriguez-white differentiation is maintained. There are no findings to suggest acute dural sinus thrombosis or acute territorial infarct. There are no significant calvarial abnormalities. Visualized portions of the sinuses and mastoid air cells are clear. IMPRESSION: No acute intracranial findings. Electronically signed by: Omar Lira M.D. 04/23/2017 4:52 PM Dictated Date/Time: 04/23/2017 4:50 PM The status of this report is Signed. Draft = Not yet reviewed or approved by Radiologist. Signed = Reviewed and approved by Radiologist. CHEST ONE VIEW PORTABLE CLINICAL HISTORY: Atypical chest pain COMPARISON STUDY: 01/19/2016 FINDINGS: The cardiac and mediastinal contours are normal. There is no evidence of focal pulmonary consolidation. There is no evidence of failure. No pleural effusions are visualized.[ IMPRESSION: No active disease in the chest. Electronically signed by: Anthony Molina M.D. 04/23/2017 3:46 PM Dictated Date/Time: 04/23/2017 3:46 PM The status of this report is Signed. Draft = Not yet reviewed or approved by Radiologist. Signed = Reviewed and approved by Radiologist. EKG MONSERRAT RIBEIRO ID:[id number] 23-APR-2017 14:57:10 [facility] Poor data quality, interpretation may be adversely affected Normal sinus rhythm with sinus arrhythmia Low voltage QRS Incomplete right bundle branch block Borderline ECG When compared with ECG of 27-AUG-2013 21:15, Incomplete right bundle branch block is now Present 25mm/s 10mm/mV 150Hz 8.0 SP2 12SL 241 ANDRE: 0 Referred by: Referred Self Unconfirmed Vent. rate 77 BPM CA interval 156 ms QRS duration 104 ms QT/QTc 352/398 ms P-R-T axes 60 -12 32 1980 (36 yr) Female Room: Loc:15 Residential Support Worker:CRISTINA Ayala ind: Impression Assessment and Plan Patient is a pleasant 36 y/o female, with PMHx of RA and HTN, who presented to the ED because of generalized body pain and intractable headache w/ associate nausea. Chest pain, r/o ACS- likely secondary to RA flair: - Admit to tele for cardiac monitoring - Trend cardiac enzymes- initial enzymes negative - EKG w/ acute ischemic changes; follow EKG QAM and PRN chest pain - O2 protocol - IV Morphine and Nitro PRN for chest pain ?RA flare: - IV Solu-Medrol 125 mg given in ED; will continue IV 60 mg BID - Continue Humira inj weekly - Hold Medrol 8 mg daily due to IV steroid treatment Headache w/ nausea: - Head CT unremarkable - Avoid IV narcotics due to h/o vomiting w/ use - IV NSS @ 125 ml/hr x1 - Tylenol PRN for headache + IV Solu-Medrol as above - IV Zofran PRN for nausea HTN: - Continue Chlorthalidone 12.5 mg daily- may need medication adjustment prior to discharge - IV Hydralazine PRN GI prophylaxis: Protonix daily h/o DVT- noted DVT prophylaxis: NINA/SCDs and ambulation; will hold chemical anticoagulation due to recent vaginal bleeding- consider adding if prolonged stay Code Status: LEVEL I, FULL Dispo: From home, lives w/ family- no discharge needs anticipated Attending Addendum: I have physically seen and examined this patient, have directed the physician assistants medical activities, and agree with the H&P as noted above with the following exceptions as noted. The patient is awake, alert and oriented 3, well-developed and well-nourished , normocephalic and atraumatic, lying in bed and in no acute distress. HEENT--PERRL, EOMI, mucous membranes and oropharynx dry. Neck--supple, no JVD or bruits, thyroid normal, trachea midline, no adenopathy. Heart--normal S1 and S2, no extra beats, no murmurs, rubs or gallops. Lungs--clear bilaterally with good air movement, no respiratory distress, no accessory muscle use. Abdomen--normal bowel sounds and soft, nontender and nondistended, no hernias or masses, no organomegaly. Extremities--no cyanosis, clubbing or edema. There are good distal pulses b/l. Dermatologic--normal skin turgor, normal color, warm and dry, no abnormal lymph nodes, no rash. Neurologic--cranial nerves II through XII grossly intact, motor and sensory examination normal. Rheumatologic--normal range of motion, nontender, muscles and joints. Psychiatric--normal affect. Assessment and Plan: Precordial chest pain/hypertension-- The patient will be admitted to telemetry for serial cardiac enzymes, cardiac rhythm monitoring and a 2-D echocardiogram with Dopplers. Continue chlorthalidone Hydralazine IV when necessary. Rheumatoid arthritis flare-- Solu-Medrol 125 mg IV given in the ED. Solu-Medrol 60 mg IV twice a day. Headache with nausea-- NSS at 125 ML's per hour When necessary Tylenol when necessary IV Zofran. Level of Care Telemetry Advanced Directives Existing Advance Directive: No Existing Living Will: No Existing Power of Asbestos Abatement Worker: No Resuscitation Status FULL RESUSCITATION VTE Prophylaxis VTE Risk Assessment Done? Y/N: Yes Risk Level: Moderate Given or contraindicated: T.E.D. Stockings, SCD's Social Service Consult None Apply
[2017-04-23 20:33] VITALS: BP 145/89; PULSE 70; TEMP 36.5; O2SAT 98
[2017-04-23 21:58] VITALS: BP 145/89; PULSE 70; TEMP 36.5; O2SAT 98; Ht 175.3 cm; Wt 91.1 kg
[2017-04-23] MEDS ORDERED: IV FLUIDS COMPLETED PRN (22:00)
[2017-04-23 22:39] VITALS: BP 135/83; PULSE 77
[2017-04-23] MEDS ORDERED: GI COCKTAIL PO ONE (23:00)
[2017-04-23 23:30] VITALS: BP 132/83; PULSE 83; TEMP 36.8; O2SAT 96
[2017-04-23] MEDS: MoRPHine SULFATE 2 MG/ML CARP IV PRN (23:41)
[2017-04-23] MEDS ORDERED: ALUMINUM/MAGNESIUM SUSP 18 ML, LIDOCAINE HCL 2% VISCOUS SOLN 6 ML, BARCODE IDENTIFIER 1 EA PO ONE ×2 (23:45)
[2017-04-24] VITALS (7 sets, daily range): BP systolic 123–149; BP diastolic 74–93; PULSE 79–87; TEMP 36.7–36.9; O2SAT 96–97
[2017-04-24] MEDS ORDERED: OPTIRAY 320 IV PRN (00:15)
[2017-04-24 01:20] LABS: URINE APPEARANCE CLEAR (CLEAR); URINE BILIRUBIN NEG (NEG); URINE COLOR YELLOW; URINE NITRITE NEG (NEG); URINE PH 7.5 (4.5-7.5); URINE SPECIFIC GRAVITY 1.038 (1.000-1.030); UROBILINOGEN NEG (NEG); ZZUR CULT IF INDIC CLEAN CATCH NO
[2017-04-24 01:44] LABS: MANUAL MICROSCOPIC REQUIRED? NO; REVIEW REQ? NO
[2017-04-24] MEDS: MoRPHine SULFATE 2 MG/ML CARP IV PRN ×2 (01:47→12:56)
--- NOTE | 2017-04-24 05:34 | Progress Note ---
Progress Note Date of Service Apr 24, 2017. Progress Note RESIDENT NIGHT FLOAT COVERAGE Overnight, was called about pts persistent chest pain. Had not resolved with Dilaudid 3mg in ED, and I provided 4mg Morphine IV which did not provide relief. Reviewed chart & discussed with RN, and it seems she recently had hormone replacement, has associated shortness of breath, and described chest pain as pleuritic. She has a hx of L leg DVT. CTA was ordered to evaluate for PE. I was informed by RN that this was negative for PE. 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
--- NOTE | 2017-04-24 06:55 | DIAGNOSTIC IMAGING REPORT ---
CT ANGIOGRAM OF THE CHEST CLINICAL HISTORY: Central chest pain. COMPARISON STUDY: 12/17/2011, chest x-ray dated 04/23/2017 , CT scan of the abdomen pelvis dated 12/31/2013, August 2006 TECHNIQUE: Following the IV administration of 320 mL of Optiray-320, CT angiogram of the thorax was performed from the thoracic inlet to the lung bases utilizing the pulmonary embolus protocol. Images are reviewed in the axial, sagittal, and coronal planes. IV contrast was administered without complication. MIP imaging was performed. A dose lowering technique was utilized adhering to the principles of ALARA. CT DOSE: 336.53 mGy.cm FINDINGS: There is a 24 mm left lobe thyroid nodule. No pathologically enlarged axillary mediastinal or hilar lymph nodes were visualized. There was no evidence of thoracic aortic dilatation. There were no pulmonary artery filling defects to indicate acute pulmonary embolism. No pleural effusions are visualized. There is respiratory motion artifact. There is no focal pulmonary consolidation. There is a 21 mm hypodensity within the right hepatic lobe. IMPRESSION: 1. Study mildly degraded by motion artifact 2. No evidence of acute pulmonary embolism 3. No evidence of focal pulmonary consolidation 4. 24 mm left lobe thyroid nodule 5. Indeterminate 21 mm right hepatic lobe hypodense lesion, slightly larger than in 2013, but present in 2006. This could represent a slowly enlarging hemangioma. Electronically signed by: Anthony Molina M.D. 04/24/2017 6:53 AM Dictated Date/Time: 04/24/2017 6:46 AM
[2017-04-24] MEDS ORDERED: METHYLPREDNISOLONE IV 60 MG in SYRINGE 0 ML IV SCH (07:00)
[2017-04-24] MEDS: PANTOprazole SOD 40 MG TAB PO SCH (07:43)
[2017-04-24] MEDS: CHLORTHALIDONE 25 MG TAB PO SCH (07:43)
[2017-04-24] MEDS: SIMETHICONE 80 MG CHEW PO PRN (09:12)
[2017-04-24] MEDS ORDERED: KETOROLAC TROMETHAMINE 30 MG/ML VIAL IV STA (10:43)
[2017-04-24] MEDS ORDERED: KETOROLAC TROMETHAMINE 30 MG/ML VIAL ONE (10:44)
[2017-04-24] MEDS ORDERED: ADALIMUMAB 40 MG/0.8 ML SYR SQ ONE (15:00)
[2017-04-24] MEDS: KETOROLAC TROMETHAMINE 10 MG TAB PO PRN ×2 (15:52→21:58)
[2017-04-24] MEDS ORDERED: MoRPHine SULFATE 4 MG/ML 1 ML CARP\\VIAL IV PRN (16:00)
[2017-04-24] MEDS: ACETAMINOPHEN 500 MG TAB PO SCH ×2 (17:05→21:59)
[2017-04-24] MEDS: METHYLPREDNISOLONE IV 30 MG in SYRINGE 0 ML IV SCH (18:34)
--- NOTE | 2017-04-24 19:13 | Family Medicine Progress Note ---
Progress Note Date of Service Apr 24, 2017. Subjective Pt evaluation today including: conversation w/ patient, conversation w/ family , physical exam, chart review, lab review, review of studies Pain: moderate to severe PO Intake: adequate Voiding: no voiding problems Pt explains that her symptoms began insidiously over the day at work, symptoms of headache, tightness int he chest and her hands feeling intense pain, so much so that when she tried driving home from work, she was unable to bend her fingers over the driving wheel due to the pain that caused. Tightness in chest she said was located on her anterior chest from her neck to her stomach and sides of her ribs. Pt said sitting slumped made it worse, no associated triggers , intermittent tight pain, not associated with SOB or sweating or panic feelings. Came to the ED due to intractable torso pain and head ache. CP rule out commenced, ECG NSR, incomplete BBB, CXR neg, CT head no acute findings, ESR 15, Trp neg x3. Given Dilaudid x2 for pain, did not touch the pain. Pt vomited. OWEN persisted - band like pain in occipital area. High blood pressure during painful episode, as high as 202/130. Of note pt was recently placed on antihypertensive medicine for recent high blood pressures. PMH sig for rheumatoid arthiritis (on Humira, Medrol 8mgOD), h/o flairs including costochondritis, menorhagia necessitating hyseroscopy and myomectomy, synovectomy in RT foot. FH father suffered a heart attack age 40s, brain aneurysm as well. . Mother is healthy. 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 Respiratory: No cough, No sputum, No shortness of breath, No dyspnea on exertion Cardiovascular: + chest pain (bilateral diffusely over torso, not radiating to back or neck. Ass'd with head ache.) Abdomen: No pain, No nausea Musculoskeletal: + joint pain (in b/l hands) Medications Reported Home Medications Medications Dose Route/Sig Max Daily Dose Days Date Category Dose Instructions Chlorthalidone 25 Mg Tab 12.5 Mg PO DAILY 04/23/17 Reported 1/2 0F A 25 MG TABLET Medrol (Methylprednisolone) 4 Mg Tab 8 Mg PO DAILY 04/23/17 Reported TWO 4 MG TABLETS Multivitamin (Multivitamins) Tab 1 Tab PO DAILY 04/23/17 Reported Humira (Adalimumab) 40 Mg/0.8 Ml Kit 40 Mg INJ WK 02/10/13 Reported Objective Vital Signs Date Time Temp Pulse Resp B/P (MAP) Pulse Ox O2 Delivery O2 Flow Rate FiO2 04/24/17 20:00 Room Air 04/24/17 20:00 36.8 80 18 123/77 (92) 96 04/24/17 16:00 Room Air 04/24/17 16:00 36.8 87 16 147/93 (111) 96 04/24/17 12:00 Room Air 04/24/17 11:16 36.8 79 18 142/83 (102) 97 Room Air 04/24/17 08:00 Room Air 04/24/17 07:48 149/91 (110) 04/24/17 07:22 36.8 86 20 136/87 (103) 97 Room Air 04/24/17 04:15 36.7 82 16 128/74 (92) 96 Room Air 04/24/17 04:00 Room Air 04/24/17 00:00 Room Air Physical Exam General Appearance: WD/WN, + mild distress Eyes: normal inspection, EOMI Respiratory/Chest: lungs clear, normal breath sounds, + pertinent finding ( pain reproduced with deep inhalation, and lifting her arms. Exquisitely tender to palpation over ribs b/l.) Cardiovascular: regular rate, rhythm, no edema, no gallop, no JVD Abdomen: normal bowel sounds, non tender, soft Extremities: normal range of motion, normal inspection Neurologic/Psychiatric: alert, normal mood/affect, oriented x 3 Skin: normal color, warm/dry, no rash Assessment and Plan Pt explains that her symptoms began insidiously over the day at work, symptoms of headache, tightness int he chest and her hands feeling intense pain, so much so that when she tried driving home from work, she was unable to bend her fingers over the driving wheel due to the pain that caused. Tightness in chest she said was located on her anterior chest from her neck to her stomach and sides of her ribs. Pt said sitting slumped made it worse, no associated triggers , intermittent tight pain, not associated with SOB or sweating or panic feelings. Came to the ED due to intractable torso pain and head ache. CP rule out commenced, ECG NSR, incomplete BBB, CXR neg, CT head no acute findings, ESR 15, Trp neg x3. Given Dilaudid x2 for pain, did not touch the pain. Pt vomited. OWEN persisted - band like pain in occipital area. High blood pressure during painful episode, as high as 202/130. Of note pt was recently placed on antihypertensive medicine for recent high blood pressures. PMH sig for rheumatoid arthiritis since 2004 (on Humira, Medrol 8mgOD), h/o flairs including costochondritis, menorhagia necessitating hyseroscopy and myomectomy, synovectomy in RT foot. FH father suffered a heart attack age 40s, brain aneurysm as well. . Mother is healthy. 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 Chest pain likely 2/2 Rheumatoid arthritis flair with costochondritis, acute CP 2/2 cardiac cause unlikely, ruled out as above has been off of regular weekly injections of her Humira due to myomectomy in March. Longstanding h/o rheumatoid arthritis, treated with Medrol 8mg daily which when she has a flair she doubles the dose. Ordered Humira injection to be given here. Spoke at length with her sod cutter Dr. Reynolds ([phone]) today, and recommended halving medrol iv dose, as well as specific physcial exam focusing on her joints (hands and shoulders especially) as these are typical areas of pain for her during flair, as is costochondral points. Appreciate her help. Pain control required titrating as she was admitted on chest pain protocol, changed Morphine to 2-4 q6, Ketorolac inj once, Ketorolac PO, Tylenol scheduled. Pt tolerating. Medrol 30mg IV Humira injection given today Heating pad Pt tolerating well, pain is improved. Follow. Hypertension Controlled. Continue chlorthalidone 12.5 Hematuria, UA + for h/o menorrhagia will follow. no s/s of bleeding otherwise, no dizziness or lightheadedness Code: FULL PPX: protonix, SCDs/TEDs Dispo: will transfer to med/surg tomorrow, then with adequate pain control go home Continued [facility] stay due to: inadequate oral pain control Discharge planning: home Resident Tracking Resident Involvement: Resident Care Provided Care Provided: [facility] Resident Tracking Resident Involvement: Resident Care Provided Care Provided: Adult [facility]
--- NOTE | 2017-04-24 19:21 | EMERGENCY ROOM VISIT NOTE ---
History Report prepared by Mallorie: Adrian Lujan Under the Supervision of: Dr. Denver Ortez M.D. First contact with patient: 15:07 Chief Complaint: CHEST PAIN Stated Complaint: CHEST PAIN, OWEN, RA FLAIR Nursing Triage Summary: "I started having chest pains radiating up into my neck today at work, I feel like my head is going to explode, my RA is flaring up." pain 02/19. I saw Dr. Mariscal on Thursday for heart fluttering, he started me on a low dose bp med. History of Present Illness The patient is a 36 year old female who presents to the Emergency Room with complaints of worsening hypertension beginning two weeks ago. The patient also complains of chest pain that occasionally radiates to her neck. She also complains of dizziness, throbbing headache and difficulty focusing. Her additional symptoms began today. The patient has a history of similar symptoms which were thought to be related to costochondritis. She denies SOB or abdominal pain. She has a history of RA and is chronically on steroids. The patient was recently started on Chlorthalidone for HTN. Source of History: patient Onset: Two weeks ago Quality: other (hypertension) Timing: worsening Associated Symptoms: + headache, + chest pain, No SOB, No abdominal pain Note: Additional symptoms: dizziness. Review of Systems See HPI for pertinent positives & negatives. A total of 10 systems reviewed and were otherwise negative. Past Medical & Surgical Medical Problems: (1) Chest pain (2) Headache (3) Pauciarticular juvenile rheumatoid arthritis Surgical Problems: (1) Previous section Family History Patient reports no known family medical history. Social History Smoking Status: Never Smoker Alcohol Use: none Drug Use: none Marital Status: Housing Status: lives with family Occupation Status: employed Current/Historical Medications Scheduled Adalimumab (Humira), 40 MG INJ WK Chlorthalidone (Chlorthalidone), 12.5 MG PO DAILY Methylprednisolone (Medrol), 8 MG PO DAILY Multivitamin (Multivitamin), 1 TAB PO DAILY Allergies Coded Allergies: BEE STING (Verified Allergy, Severe, ANAPHYLAXIS, 04/23/17) NO KNOWN DRUG ALLERGIES (Verified Allergy, Unknown, ., 04/23/17) Physical Exam Vital Signs Date Time Temp Pulse Resp B/P (MAP) Pulse Ox O2 Delivery O2 Flow Rate FiO2 04/23/17 19:15 70 16 150/91 04/23/17 19:00 77 19 04/23/17 18:45 68 13 04/23/17 17:58 77 20 153/98 97 Room Air 04/23/17 17:36 78 04/23/17 16:50 76 160/94 97 Room Air 04/23/17 16:15 86 20 160/106 98 Room Air 04/23/17 14:55 37.1 87 18 202/130 94 Room Air Physical Exam GENERAL: Patient is uncomfortable appearing and in moderate distress. HEENT: No acute trauma, normocephalic atraumatic, mucous membranes moist, no nasal congestion, no scleral icterus. NECK: No stridor, no adenopathy, no meningismus, trachea is midline. LUNGS: No dyspnea. Clear to auscultation and equal bilaterally. No wheeze, no rhonchi. HEART: Regular rate and rhythm. No murmurs, rubs, gallops appreciated. ABDOMEN: Soft, nontender, bowel sounds positive, no masses appreciated, no peritonitis. BACK: No midline tenderness, no CVA tenderness EXTREMITIES: Normal motion all extremities, no cyanosis, no edema. NEUROLOGIC: Alert and oriented, no acute motor or sensory deficits, no focal weakness, cranial nerves grossly intact. SKIN: No rash, no jaundice, no diaphoresis. Medical Decision & Procedures ER Provider Diagnostic Interpretation: Radiology results and stated below per my review and radiologist interpretation: CT OF THE HEAD WITHOUT CONTRAST FINDINGS: No acute intracranial hemorrhage, midline shift or mass effect is present. Brain volume is normal. Ventricular system is normal. Basilar cisterns are patent. There are no extra-axial collections. Rodriguez-white differentiation is maintained. There are no findings to suggest acute dural sinus thrombosis or acute territorial infarct. There are no significant calvarial abnormalities. Visualized portions of the sinuses and mastoid air cells are clear. IMPRESSION: No acute intracranial findings. Electronically signed by: Omar Lira M.D. 04/23/2017 4:52 PM CHEST ONE VIEW PORTABLE FINDINGS: The cardiac and mediastinal contours are normal. There is no evidence of focal pulmonary consolidation. There is no evidence of failure. No pleural effusions are visualized.[ IMPRESSION: No active disease in the chest. Electronically signed by: Anthony Molina M.D. 04/23/2017 3:46 PM Laboratory Results 04/23/17 15:51 Red Blood Count 4.69, Mean Corpuscular Volume 90.2, Mean Corpuscular Hemoglobin 32.0, Mean Corpuscular Hemoglobin Concent 35.5, Mean Platelet Volume 8.9, Neutrophils (%) (Auto) 45.9, Lymphocytes (%) (Auto) 41.1, Monocytes (%) (Auto) 9.4, Eosinophils (%) (Auto) 3.1, Basophils (%) (Auto) 0.4, Neutrophils # (Auto) 4.52, Lymphocytes # (Auto) 4.06, Monocytes # (Auto) 0.93, Eosinophils # (Auto) 0.31, Basophils # (Auto) 0.04 04/23/17 15:51 Test 04/23/17 15:47 04/23/17 15:51 Erythrocyte Sedimentation Rate 15 mm/hr (0-21) White Blood Count 9.87 K/uL (4.8-10.8) Red Blood Count 4.69 M/uL (4.2-5.4) Hemoglobin 15.0 g/dL (12.0-16.0) Hematocrit 42.3 % (37-47) Mean Corpuscular Volume 90.2 fL (80-100) Mean Corpuscular Hemoglobin 32.0 pg (25-34) Mean Corpuscular Hemoglobin Concent 35.5 g/dl (32-36) Platelet Count 292 K/uL (130-400) Mean Platelet Volume 8.9 fL (7.4-10.4) Neutrophils (%) (Auto) 45.9 % Lymphocytes (%) (Auto) 41.1 % Monocytes (%) (Auto) 9.4 % Eosinophils (%) (Auto) 3.1 % Basophils (%) (Auto) 0.4 % Neutrophils # (Auto) 4.52 K/uL (1.4-6.5) Lymphocytes # (Auto) 4.06 K/uL (1.2-3.4) Monocytes # (Auto) 0.93 K/uL (0.11-0.59) Eosinophils # (Auto) 0.31 K/uL (0-0.5) Basophils # (Auto) 0.04 K/uL (0-0.2) RDW Standard Deviation 40.0 fL (36.4-46.3) RDW Coefficient of Variation 12.3 % (11.5-14.5) Immature Granulocyte % (Auto) 0.1 % Immature Granulocyte # (Auto) 0.01 K/uL (0.00-0.02) Anion Gap 9.0 mmol/L (3-11) Est Creatinine Clear Calc Drug Dose 125.2 ml/min Estimated GFR () 121.9 Estimated GFR (Non- 105.2 BUN/Creatinine Ratio 17.5 (10-20) Calcium Level 8.7 mg/dl (8.5-10.1) C-Reactive Protein 0.36 mg/dl (0-0.29) Thyroid Stimulating Hormone (TSH) 1.100 uIu/ml (0.300-4.500) Laboratory results as reviewed by me. Medications Administered Medications (Trade) Dose Ordered Sig/[place] Route Start Time Stop Time Status Last Admin Dose Admin Labetalol HCl (Normodyne IV) 10 mg NOW STAT IV 04/23/17 15:26 04/23/17 15:35 DC 04/23/17 16:09 10 MG Hydromorphone HCl (Dilaudid Inj) 1 mg NOW STAT IV 04/23/17 15:26 04/23/17 15:35 DC 04/23/17 16:10 1 MG Hydromorphone HCl (Dilaudid Inj) 1 mg NOW STAT IV 04/23/17 16:57 04/23/17 16:59 DC 04/23/17 17:07 1 MG Ondansetron HCl (Zofran Inj) 4 mg NOW STAT IV 04/23/17 17:55 04/23/17 17:56 DC 04/23/17 18:11 4 MG Methylprednisolone Sodium Succinate (Solu-Medrol IV) 125 mg NOW STAT IV 04/23/17 17:58 04/23/17 18:00 DC 04/23/17 18:11 125 MG Hydromorphone HCl (Dilaudid Inj) 1 mg NOW STAT IV 04/23/17 18:21 04/23/17 18:22 DC 04/23/17 18:27 1 MG Sodium Chloride 1,000 ml @ 125 mls/hr Q8H ONCE IV 04/23/17 19:15 04/24/17 03:14 DC 04/23/17 23:41 125 MLS/HR Ondansetron HCl (Zofran Inj) 4 mg Q6H PRN IV 04/23/17 19:15 05/23/17 19:14 04/23/17 23:39 4 MG Morphine Sulfate (MoRPHine SULFATE INJ) 2 mg Q30M PRN IV 04/23/17 19:15 04/24/17 15:52 DC 04/24/17 12:56 2 MG ECG Indication: chest pain Rate (beats per minute): 77 Rhythm: normal sinus Findings: no acute ischemic change, no ectopy, other (incomplete RBBB) ED Course 151: The patient was evaluated in room C1. A complete history and physical exam was performed. 1526: Ordered Dilaudid Inj 1 mg IV, Normodyne 10 mg IV. 165: Ordered Dilaudid Inj 1 mg IV. 175: Ordered Zofran Inj 4 mg IV. 175: Ordered Solu-Medrol 125 mg IV. 182: Ordered Dilaudid Inj 1 mg IV. 1840: Upon reevaluation, the patient is resting comfortably. Discussed results and treatment plan with the patient. She verbalized understanding and agreement with the treatment plan. The patient will be evaluated for further management. Medical Decision Differential: Benign Hypertension, Hypertensive Urgency/Emergency, Cardiovascular Pathology, Endocrine, Metabolic/Electrolyte, Renal Disease, End organ Damage, amongst other pathologies entertained. 36 yr old female with RA issues arrives with acute headache and diffuse body pains. This is shortly after finishing Aygestin dosing. She is very uncomfortable though without evidence of meningitis/sepsis. CT head negative for acute findings. Labs unremarkable. This is possibly RA flare thus I gave dose of solumedrol. I do not feel that LP indicated at this time. This is not consistent with PE/Dissection/ACS. She may require further neuro imaging but given intractable pain will bring in to hospitalist service. Medication Reconcilliation Current Medication List: was personally reviewed by me Blood Pressure Screening Patient's blood pressure: Elevated blood pressure Blood pressure disposition: Referred to PCP Consults Time Called: [id number] Consulting Physician: Dr. Streeter -[facility] Returned Call: [phone] Discussed the patient's case. The patient will be evaluated for further treatment and disposition. Impression Primary Impression: Intractable headache Scribe Attestation The scribe's documentation has been prepared under my direction and personally reviewed by me in its entirety. I confirm that the note above accurately reflects all work, treatment, procedures, and medical decision making performed by me. Departure Information Dispostion Being Evaluated By Hospitalist Referrals Caesar Mariscal M.D. (PCP) Patient Instructions My [facility]
[2017-04-25] VITALS (7 sets, daily range): BP systolic 125–168; BP diastolic 69–103; PULSE 67–96; TEMP 36.5–36.9; O2SAT 95–98
[2017-04-25] MEDS: KETOROLAC TROMETHAMINE 10 MG TAB PO PRN ×3 (06:11→20:02)
[2017-04-25] MEDS: ACETAMINOPHEN 500 MG TAB PO SCH ×3 (06:11→22:19)
[2017-04-25] MEDS: METHYLPREDNISOLONE IV 30 MG in SYRINGE 0 ML IV SCH ×2 (06:29→17:55)
[2017-04-25 06:38] LABS: HEMATOCRIT 41.5 % (37-47); MEAN CELL VOLUME 90.8 fL (80-100); MEAN CORPUSCULAR HEMOGLOBIN 31.1 pg (25-34); MEAN CORPUSCULAR HGB CONC 34.2 g/dl (32-36); PLATELET COUNT 328 K/uL (130-400); RED BLOOD COUNT 4.57 M/uL (4.2-5.4); WHITE BLOOD COUNT 18.52 K/uL (4.8-10.8)
[2017-04-25 07:20] LABS: CALCIUM 9.3 mg/dl (8.5-10.1); CREATININE 0.73 mg/dl (0.60-1.20); POTASSIUM 4.3 mmol/L (3.5-5.1)
[2017-04-25] MEDS: CHLORTHALIDONE 25 MG TAB PO SCH (08:48)
[2017-04-25] MEDS: PANTOprazole SOD 40 MG TAB PO SCH (08:48)
[2017-04-25] MEDS: MoRPHine SULFATE 2 MG/ML CARP IV PRN ×2 (12:24→17:56)
[2017-04-25] MEDS ORDERED: ACET-1256 PO (12:31)
--- NOTE | 2017-04-25 14:49 | Family Medicine Progress Note ---
Progress Note Date of Service Apr 25, 2017. Subjective Pt evaluation today including: conversation w/ patient, conversation w/ family , physical exam, chart review, lab review, review of studies Pain: intermittent 4-6/10 PO Intake: adequate Voiding: no voiding problems Pt's is in the room, and pt is in the bathroom - in conversation with him he lets me know that pt is motivated to go home and be with her daughter. We discussed diischarge possibility. Upon return later to examine the pt, report given by nurse of another acute painful event associated with concomitant increase in BP. Pt describes it as the same as that which brought her in, a tightening and concentric pressure across her ribs anteriorly and axially that comes on suddenly and is associated with tiightening and pain from her posterior neck to her occiput, b/l, with small focus in right temporal area. Pt says the pain comes suddenly and leaves suddenly. Denies SOB, dizziness or lightheadedness, loss of vision, ringing in ears during these episodes. Constitutional: + see HPI Respiratory: + see HPI Cardiovascular: + see HPI Objective Physical Exam General Appearance: WD/WN, no apparent distress, + pertinent finding ( normocephalic, atraumatic, tenderness to palpation over posterior neck muscles and RT temporalis) Eyes: normal inspection, EOMI ENT: hearing grossly normal, pharynx normal Respiratory/Chest: lungs clear, normal breath sounds, no respiratory distress, + pertinent finding (excuisitely tender to palpation over lower ribs axial line and subscapular line) Cardiovascular: regular rate, rhythm, no edema, no gallop, no JVD Abdomen: normal bowel sounds, soft, + pertinent finding (tenderness to palpation in RUQ, epigastrium) Extremities: normal range of motion, non-tender, + pertinent finding (enlarged rheumatic MCP LT hand. Non tender.) Neurologic/Psychiatric: grape crusher II-XII nml as tested, no motor/sensory deficits, alert, normal mood/affect, oriented x 3 Skin: normal color, warm/dry, no rash Laboratory Results 04/25/17 06:18 04/25/17 06:18 Test 04/25/17 06:18 04/25/17 15:58 Red Blood Count 4.57 M/uL (4.2-5.4) Mean Corpuscular Volume 90.8 fL (80-100) Mean Corpuscular Hemoglobin 31.1 pg (25-34) Mean Corpuscular Hemoglobin Concent 34.2 g/dl (32-36) RDW Standard Deviation 40.0 fL (36.4-46.3) RDW Coefficient of Variation 12.1 % (11.5-14.5) Mean Platelet Volume 9.0 fL (7.4-10.4) Anion Gap 7.0 mmol/L (3-11) Est Creatinine Clear Calc Drug Dose 127.1 ml/min Estimated GFR () 121.9 Estimated GFR (Non- 105.2 BUN/Creatinine Ratio 24.0 (10-20) Calcium Level 9.3 mg/dl (8.5-10.1) Lactic Acid Level 3.0 mmol/L (0.4-2.0) Total Bilirubin 0.3 mg/dl (0.2-1) Direct Bilirubin < 0.1 mg/dl (0-0.2) Aspartate Amino Transf (AST/SGOT) 10 U/L (15-37) Alanine Aminotransferase (ALT/SGPT) 16 U/L (12-78) Alkaline Phosphatase 76 U/L (45-117) Total Protein 6.9 gm/dl (6.4-8.2) Albumin 3.1 gm/dl (3.4-5.0) Assessment and Plan Pt explains that her symptoms began insidiously over the day at work, symptoms of headache, tightness in the chest and her hands feeling intense pain, so much so that when she tried driving home from work, she was unable to bend her fingers over the driving wheel due to the pain that it caused. Tightness in chest she said was located on her anterior chest from her neck to her stomach and sides of her ribs. Pt said sitting slumped made it worse, no associated triggers, intermittent tight pain, not associated with SOB or sweating or panic feelings. Came to the ED due to intractable torso pain and head ache. CP rule out commenced, ECG NSR with incomplete BBB, CXR neg, CT head no acute findings, ESR 15, Trp neg x3. Holding echo for now given atypical chest pain. In ED also given Dilaudid x2 for pain, did not touch the pain. Pt vomited. OWEN persisted - band like pain in occipital area. High blood pressure during painful episode, as high as 202/130. 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 No complications) Also of note, was recently placed on antihypertensive medicine Chlorthalidone 12.5 by her agricultural plow operator for recent high blood pressures since Thursday (has only taken for 5-6 days at time of admission). Symptoms were not present before then. PMH sig for rheumatoid arthiritis since 2004 (on Humira injection weekly, Medrol 8mgOD), h/o flairs including costochondritis, also menorrhagia necessitating hysteroscopy and , synovectomy in RT foot. Also + for endometriosis, FH father suffered [place] age 40s, underwent cardiac and renal transplant, brain aneurysm as well. . *Per outpatient charts, Brother from glioblastoma multiforme in his 30s. Mother has emphysema. 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 Torso pain associated with high blood pressure and headache ?2/2 Rheumatoid arthritis flair with costochondritis, acute? vs ?Budd Chiari? CP 2/2 cardiac cause unlikely, ruled out as above has been off of regular weekly injections of her Humira due to myomectomy in March. Longstanding h/o rheumatoid arthritis, treated with Medrol 8mg daily which when she has a flair she doubles the dose. Ordered Humira injection to be given here. Spoke at length with her agricultural plow operator Dr. Reynolds ([phone]), and she recommended halving medrol iv dose, as well as specific physcial exam focusing on her joints (hands and shoulders especially) as these are typical areas of pain for her during flair, as is costochondral points. Appreciate her help. Pain control required titrating as she was admitted on chest pain protocol, changed Morphine to 2-4 q6, Ketorolac inj once, Ketorolac PO, Tylenol scheduled. Pt tolerating. Medrol 30mg IV Humira injection given x1 Heating pad Pt tolerating well, pain is improved. Late morning though develooped another episode of acute pain, again in same area, associated with intense occipital headache ("4/10") and Rt temporalis pain. Liver U/S ordered to r/o budd-chiari - Result: negative for acute changes. Given + FH (brother, father) ordered Head MRA, Brain MRI which were both negative for acute proceses. Hypertension - uncontrolled DCed chlorthalidone 12.5 as perhaps this acute process is a side effect of newly started drug a week ago. Put on Aldactone. Following. Ordered [facility] urine labs to screen for pheochromocytoma Lab abnormality - Hematuria 2+ recent h/o menorrhagia will follow. no s/s of bleeding otherwise, no dizziness or lightheadedness, no letty bleeding anywhere. Abnormality on Liver scan- hyperechoic lesion the right hepatic lobe Per [facility]: The liver is enlarged, measuring over 19 cm in length. A 2.0 cm hyperechoic lesion the right hepatic lobe is typical in appearance for a hemangioma. This [place] also seen [place] [address] Unchanged since previuous scan. Follow up with PCP. Enlarged thyroid on CT "There is a 24 mm left lobe thyroid nodule." TSH is 1.10 (04/23/17.) Follow with PCP if changes. Hypovitaminosis D ordered 1000 units to be given daily Code: FULL PPX: protonix, SCDs/TEDs (holding chemical anticoagulation given h/o menorrhagia requiring D&C, agestin.) Dispo: will transfer to med/surg tomorrow, then with adequate pain control go home Continued [facility] stay due to: inadequate oral pain control Discharge planning: home Resident Tracking Resident Involvement: Resident Care Provided Care Provided: Adult Hospital Medicine Reviewed: Pt Seen/Exam by Me History Resident Physician Supervision Note: I was present with Dr. Cosme during the history and exam. I discussed the case with the resident and agree with the findings and plan as documented in the note. Any exceptions or clarifications are listed here: Patient was having one of her painful episodes of squeezing torso pain radiating up the posterior neck into the posterior occiput when I saw her that was fairly severe, along with elevated blood pressures into the 160s systolic. She notes the recent menorrhagia and found an endocervical polyp which was removed and was benign. After that, she was placed on progesterone only containing pills for 12 days and her bleeding stopped, then restarted when she completed the pills, and now is very light again. She reports that her blood pressure has been creeping up over the last month or so and was noted by the nurse at the detective chief's office. She had blood pressures in the 150s over low 100s with no symptomatology at all when she was at her PCP office last week and started on chlorthalidone. It was only after starting the chlorthalidone, that she began having these surges of pain and flushing into the face. Vitals reviewed No acute distress, sitting up in bed and very pleasant, alert awake and oriented 3 Regular rate and rhythm, no murmurs gallops or rubs Lungs clear to auscultation bilaterally, no wheezes crackles or rhonchi Positive bowel sounds soft, positive tenderness to palpation in the right upper quadrant, negative Marcelo sign, no definite hepatosplenomegaly palpated, no bruit Extremities with mild synovitis at the left third MCP joint, full range of motion of all joints, no tenderness to palpation over her other joints, right ankle with trace effusion MSK: Exquisite tenderness to palpation of the rib cage and anterior chest wall diffusely Skin no rashes 36-year-old female history of rheumatoid arthritis, newly diagnosed hypertension , here with severe likely musculoskeletal chest pain radiating into the head with new onset headaches associated with nausea and vomiting as well as dizziness and labile hypertension. Patient states that this is not her typical flare of rheumatoid arthritis and in fact she was off of Humira for about 12 weeks earlier this year for her ankle surgery and had no symptoms whatsoever. Perhaps this is a reaction to the chlorthalidone she was started on last week -Given recent progesterone use and right upper quadrant pain, check LFTs and right upper quadrant ultrasound to look for hepatic or portal vein thrombosis -Check MRI of the brain and MRA of the head given new onset severe headaches with associated hypertension-headache might be from hypertension but given family history of cerebral aneurysm, need to look for aneurysm as well -Stop chlorthalidone in case of adverse side effect and start Aldactone instead , follow potassium levels -Continue pain control -Start vitamin D 1000 units daily on top of which she takes and her multivitamin -Plan to taper steroids back to home dose fairly quickly Prophylaxis with SCDs given recent menorrhagia Documented By: Chatne Gutierrez
--- NOTE | 2017-04-25 15:25 | DIAGNOSTIC IMAGING REPORT ---
MR ANGIOGRAM OF THE BRAIN CLINICAL HISTORY: Headache. Reported family history of aneurysm. COMPARISON STUDY: CT of the brain dated 04/23/2017. TECHNIQUE: 3-D [id number] MR angiography of the intracranial circulation is performed. 3-D tumble views are created and assessed. IV contrast was not administered for this examination. FINDINGS: The [place] is developmentally complete. The internal carotid arteries are widely patent bilaterally, as are the anterior and middle cerebral arteries. The vertebrobasilar system and posterior cerebral arteries are widely patent. The vertebral arteries are codominant. There is no aneurysm, high-grade stenosis, or focal vessel cutoff seen throughout the intracranial circulation. The brain parenchyma is normal as visualized. IMPRESSION: Unremarkable MR angiogram of the brain. Electronically signed by: Bonifacio Vivas M.D. 04/25/2017 3:23 PM Dictated Date/Time: 04/25/2017 3:21 PM
--- NOTE | 2017-04-25 15:40 | DIAGNOSTIC IMAGING REPORT ---
MRI OF THE BRAIN COMBO CLINICAL HISTORY: Headache. COMPARISON STUDY: CT of the brain dated 04/23/2017. TECHNIQUE: MRI of the brain was performed utilizing various T1 and T2-weighted sequences in the axial, sagittal, and coronal planes. Contrast-enhanced sequences were acquired following the administration of 9 cc of Gadavist. FINDINGS: Brain parenchyma: A punctate focus of T2 signal abnormality within the right frontal white matter is of doubtful significance as an isolated finding. The brain parenchyma is otherwise normal in appearance. There is no hemorrhage or mass effect. There is no restricted diffusion to suggest acute ischemia. No enhancing mass lesion is identified on the postcontrast images. Rodriguez-white matter differentiation is preserved. No extra-axial fluid collection is seen. The cerebellar tonsils are normal in configuration. Ventricles, sulci, and cisterns: Normal in configuration. Pituitary and sella: Unremarkable. Intracranial vasculature: Normal flow voids are maintained at the skull base. Orbits: The bony orbits are grossly intact. Orbital contents are normal in appearance. Sinuses and mastoids: There is a retention cyst in the right maxillary antrum. The remaining paranasal sinuses are clear. The mastoid air cells are well pneumatized. Calvarium: Unremarkable. Cervical cord: Partially visualized cervical spinal cord is normal in morphology and signal intensity. IMPRESSION: No acute intracranial abnormality. Electronically signed by: Bonifacio Vivas M.D. 04/25/2017 3:38 PM Dictated Date/Time: 04/25/2017 3:35 PM
[2017-04-25 16:51] LABS: ALKALINE PHOSPHATASE 76 U/L (45-117); ALT/SGPT 16 U/L (12-78); AST/SGOT 10 U/L (15-37)
--- NOTE | 2017-04-25 17:09 | DIAGNOSTIC IMAGING REPORT ---
DOPPLER ULTRASOUND OF THE HEPATIC AND PORTAL VASCULATURE CLINICAL HISTORY: Right upper quadrant abdominal pain. 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 COMPARISON STUDY: Abdominal CT dated 12/31/2013. TECHNIQUE: Real-time, grayscale, and color Doppler sonography of the hepatic and portal vasculature is performed. FINDINGS: The liver is enlarged, measuring over 19 cm in length. A 2.0 cm hyperechoic lesion the right hepatic lobe is typical in appearance for a hemangioma. This is also seen [place] [address] Biliary sludge is noted the gallbladder. The spleen is normal in size measuring 12.3 cm in length. The splenic vein is patent. The main portal vein as well as the right and left portal veins are patent with normal direction of flow. Velocities in the main portal vein measure up to 31 cm/s. The hepatic artery is patent with normal arterial waveforms. Velocities in the hepatic artery measure up to 96 cm/s. The hepatic veins are patent with normal hepatic venous waveforms. The inferior vena cava is patent. IMPRESSION: 1. Unremarkable Doppler assessment of the hepatic and portal vasculature. 2. The liver is enlarged. 3. Biliary sludge is noted. 4. Additional findings as above. Electronically signed by: Bonifacio Vivas M.D. 04/25/2017 5:07 PM Dictated Date/Time: 04/25/2017 5:04 PM
[2017-04-25] MEDS ORDERED: CHOLECALCIFEROL 1000 INTER.UNIT TAB PO ONE (19:00)
[2017-04-25] MEDS: SIMETHICONE 80 MG CHEW PO PRN (23:44)
[2017-04-26] VITALS (10 sets, daily range): BP systolic 144–158; BP diastolic 80–107; PULSE 69–86; TEMP 36.4–37.5; O2SAT 95–97
[2017-04-26] MEDS: KETOROLAC TROMETHAMINE 10 MG TAB PO PRN (05:40)
[2017-04-26] MEDS: ACETAMINOPHEN 500 MG TAB PO SCH ×3 (05:41→22:01)
[2017-04-26 05:49] LABS: HEMATOCRIT 38.7 % (37-47); MEAN CELL VOLUME 90.4 fL (80-100); MEAN CORPUSCULAR HEMOGLOBIN 31.1 pg (25-34); MEAN CORPUSCULAR HGB CONC 34.4 g/dl (32-36); MEAN PLATELET VOLUME 9.1 fL (7.4-10.4); PLATELET COUNT 279 K/uL (130-400); RED BLOOD COUNT 4.28 M/uL (4.2-5.4)
[2017-04-26 06:12] LABS: BLOOD UREA NITROGEN 14 mg/dl (7-18); BUN/CREATININE RATIO 20.6 (10-20); CALCIUM 8.5 mg/dl (8.5-10.1); CARBON DIOXIDE 29 mmol/L (21-32); CHLORIDE 106 mmol/L (98-107); CREATININE 0.67 mg/dl (0.60-1.20); GLUCOSE 118 mg/dl (70-99); POTASSIUM 4.3 mmol/L (3.5-5.1); SODIUM 140 mmol/L (136-145)
[2017-04-26 06:13] LABS: C-REACTIVE PROTEIN < 0.29 mg/dl (0-0.29)
[2017-04-26] MEDS: METHYLPREDNISOLONE IV 30 MG in SYRINGE 0 ML IV SCH (08:02)
[2017-04-26] MEDS: MoRPHine SULFATE 2 MG/ML CARP IV PRN (08:12)
[2017-04-26] MEDS: PANTOprazole SOD 40 MG TAB PO SCH (08:47)
[2017-04-26] MEDS ORDERED: SPIRONOLACTONE 25 MG TAB PO SCH (09:00)
[2017-04-26] MEDS ORDERED: CHOLECALCIFEROL 1000 INTER.UNIT TAB PO SCH (09:00)
[2017-04-26] MEDS ORDERED: AMLODIPINE BESYLATE 5 MG TAB PO ONE (11:30)
[2017-04-26] MEDS ORDERED: METHOCARBAMOL 500 MG TAB PO ONE (12:00)
[2017-04-26] MEDS: METHOCARBAMOL 500 MG TAB PO SCH ×2 (12:31→19:46)
--- NOTE | 2017-04-26 17:22 | Family Medicine Progress Note ---
Progress Note Date of Service Apr 26, 2017. Assessment and Plan Pt explains that her symptoms began insidiously over the day at work, symptoms of headache, tightness in the chest and her hands feeling intense pain, so much so that when she tried driving home from work, she was unable to bend her fingers over the driving wheel due to the pain that it caused. Tightness in chest she said was located on her anterior chest from her neck to her stomach and sides of her ribs. Pt said sitting slumped made it worse, no associated triggers, intermittent tight pain, not associated with SOB or sweating or panic feelings. Came to the ED due to intractable torso pain and head ache. CP rule out commenced, ECG NSR with incomplete BBB, CXR neg, CT head no acute findings, ESR 15, Trp neg x3. Holding echo for now given atypical chest pain. In ED also given Dilaudid x2 for pain, did not touch the pain. Pt vomited. OWEN persisted - band like pain in occipital area. High blood pressure during painful episode, as high as 202/130. Of note pt has taken Humira treatment interrupted for weeks at a time due to gynecologist surgery, (march 2016 - polyps, myomectomy. No complications) Also of note, was recently placed on antihypertensive medicine Chlorthalidone 12.5 by her structural shop helper for recent high blood pressures since Thursday (has only taken for 5-6 days at time of admission). Symptoms were not present before then. PMH sig for rheumatoid arthiritis since 2004 (on Humira injection weekly, Medrol 8mgOD), h/o flairs including costochondritis, also menorrhagia necessitating hysteroscopy and , synovectomy in RT foot. Also + for endometriosis, FH father suffered [place] age 40s, underwent cardiac and renal transplant, brain aneurysm as well. . *Per outpatient charts, Brother from glioblastoma multiforme in his 30s. Mother has emphysema. 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 Torso pain associated with high blood pressure and headache ?2/2 Rheumatoid arthritis flair with costochondritis, acute? vs ?Budd Chiari? CP 2/2 cardiac cause unlikely, ruled out as above has been off of regular weekly injections of her Humira due to myomectomy in March. Longstanding h/o rheumatoid arthritis, treated with Medrol 8mg daily which when she has a flair she doubles the dose. Ordered Humira injection to be given here. Spoke at length with her structural shop helper Dr. Reynolds ([phone]), and she recommended halving medrol iv dose, as well as specific physcial exam focusing on her joints (hands and shoulders especially) as these are typical areas of pain for her during flair, as is costochondral points. Appreciate her help. Pain control required titrating as she was admitted on chest pain protocol, changed Morphine to 2-4 q6, Ketorolac inj once, Ketorolac PO, Tylenol scheduled. Pt tolerating. Medrol 30mg IV Humira injection given x1 Heating pad Pt tolerating well, pain is improved. Late morning though develooped another episode of acute pain, again in same area, associated with intense occipital headache ("4/10") and Rt temporalis pain. Liver U/S ordered to r/o chanel - Result: negative for acute changes. Given + FH (brother, father) ordered Head MRA, Brain MRI which were both negative for acute proceses. Hypertension - uncontrolled DCed chlorthalidone 12.5 as perhaps this acute process is a side effect of newly started drug a week ago. Put on Aldactone. Following. Ordered [facility] urine labs to screen for pheochromocytoma Lab abnormality - Hematuria 2+ recent h/o menorrhagia will follow. no s/s of bleeding otherwise, no dizziness or lightheadedness, no letty bleeding anywhere. Abnormality on Liver scan- hyperechoic lesion the right hepatic lobe Per [facility]: The liver is enlarged, measuring over 19 cm in length. A 2.0 cm hyperechoic lesion the right hepatic lobe is typical in appearance for a hemangioma. This [place] also [place] [address] Unchanged since previuous scan. Follow up with PCP. Enlarged thyroid on CT "There is a 24 mm left lobe thyroid nodule." TSH is 1.10 (04/23/17.) Follow with PCP if changes. Hypovitaminosis D ordered 1000 units to be given daily Code: FULL PPX: protonix, SCDs/TEDs (holding chemical anticoagulation given h/o menorrhagia requiring D&C, agestin.) Dispo: will transfer to med/surg tomorrow, then with adequate pain control go home Resident Tracking Resident Involvement: Resident Care Provided Care Provided: Adult [facility] Medicine
[2017-04-26] MEDS ORDERED: BISACODYL 5 MG TABEC PO ONE (17:45)
[2017-04-26] MEDS ORDERED: RBX500 PO (18:28)
[2017-04-26] MEDS ORDERED: METH1TAB81 PO (18:28)
[2017-04-26] MEDS ORDERED: NRV5 PO (18:28)
[2017-04-26] MEDS ORDERED: VTMD1000 PO (18:28)
[2017-04-26] MEDS ORDERED: ACET-24 PO (18:28)
[2017-04-26] MEDS ORDERED: SPR25 PO (18:28)
--- NOTE | 2017-04-26 18:50 | Discharge Instructions ---
Discharge Instructions Date of Service Apr 26, 2017. Admission Reason for Admission: Chest Pain, Headache Discharge Discharge Diagnosis / Problem: Basilar migraine, costochondritis, rheumatoid flare Discharge Goals Goal(s): Decrease discomfort, Increase independence, Improve disease control, Learn about illness, Diagnostic testing Activity Recommendations Activity Limitations: as noted below Lifting Limitations: gradually increase as tolerated Exercise/Sports Limitations: as tolerated May Resume Sexual Activity: when tolerated Shower/Bathe: no limitations Driving or Machine Use: no limitations . Instructions / Follow-Up Instructions / Follow-Up You were admitted due to intractable pain in your chest, headache and high blood pressure. We provided you with pain control, diagnostic studies and also changed your medications with relation to your pain control regimen and hypertension. We performed scans of your brain and your abdomen to check if the cause of your hypertension was due to any abnormalities in the blood vessels of your brain, liver, or kidneys. Your head scan shows no abnormalities, except for a thyroid nodule, which has been present on previous scans and has not grown in size when compared to previous scans. Also your thyroid function is normal, making this lesion likely benign. Also, in your liver we found no abnormalities with the vessels, but there was noted a mass in the liver which is most likely a benign tumor called hemangioma. This was also compared to a previous scan, and has not had any growth. Please follow up with your primary care physician regarding these findings. Regarding the urine collection we did and the scan of your kidney vessels, those studies are pending. Please make sure your primary care physician is aware of all these studies. Your hypertension may be a side effect of chronic NSAID and steroid use. We recommend that you avoid NSAIDs as much as possible while on your steroid regimen. This includes all pill forms like diclofenac, ibuprofen (including advil and motrin), naproxen (Aleve, Naprosyn), oxaprozin, indomethacin, aspirin , ketoprofen, nabumetone, piroxicam, salsalate, sulindac, tolmetin, celecoxib. Topical NSAIDS have less absorption through the skin, so this may be used as needed for your ribs. Your pain may be due to muscle spasms related to your chronic arthritis, and also your basilar migraines would likely be contributing. For this we are sending you with a script to help relax your muscles called Robaxin. A heating pad applied to the back of your neck and tylenol may also help relieve your pain. We are sending you home with a different antihypertensive drug - you came in on Chlorthalidone, but given the timing, perhaps this new drug can be correlated with your symptoms. We changed your medication to a different class, called Amlodipine, and then also added Spironolactone as swelling was a concern for you. Please follow up with your primary care physician within a week of discharge to recheck your blood pressure and assess your medicines. Please also keep your appointment with your type rolling machine operator Dr. Reynolds. Thank you for allowing us to participate in your care. Current Hospital Diet Patient's current hospital diet: Regular Diet Discharge Diet Recommended Diet: Regular Diet Fluid Restriction: None Pending Studies Studies pending at discharge: yes List of pending studies: Renal Artery Duplex Ultrasound Urine [facility] Urine metanephrines Medical Emergencies . Who to Call and When: Medical Emergencies: If at any time you feel your situation is an emergency, please call 911 immediately. . Non-Emergent Contact Non-Emergency issues call your: Primary Care Provider . . "Provider Documentation" section prepared by Cahnel Cosme. . VTE Core Measure Inpt VTE Proph given/why not?: Serge Mondragon, SCD's Resident Tracking Resident Involvement: Resident Care Provided Care Provided: Adult Hospital Medicine
--- NOTE | 2017-04-26 21:55 | DIAGNOSTIC IMAGING REPORT ---
DOPPLER ULTRASOUND OF THE RENAL ARTERIES CLINICAL HISTORY: Labile hypertension. COMPARISON STUDY: CT of the abdomen and pelvis December 31, 2013. FINDINGS: The peak systolic velocity within the abdominal aorta was 145 cm/s. No elevated velocities were identified within either renal artery. The peak systolic velocity within the right renal artery is 121 cm/s and the peak systolic velocity within the left renal artery was 106 cm/s. Both renal veins were patent. Segmental waveforms within each kidney were normal. IMPRESSION: No sonographic evidence of renal artery stenosis. Electronically signed by: Omar Lira M.D. 04/26/2017 9:54 PM Dictated Date/Time: 04/26/2017 9:52 PM
--- NOTE | 2017-04-26 21:57 | Discharge Summary ---
Discharge Summary Date of Service Apr 26, 2017. (Chanel Cosme M.D.) Discharge Summary Admission Date: Apr 23, 2017 at 19:25 Discharge Date: Apr 26, 2017 Discharge Disposition: Home Principal Diagnosis: Basilar migraine, chostochondritis rheumatoid flair Immunizations: Have You Had Influenza Vaccine: No Influenza Vaccine Date: May 13, 2010 History of Tetanus Vaccine?: Yes Tetanus Immunization Date: Mar 08, 2007 History of Pneumococcal: Unknown Pneumococcal Date: Apr 12, 2008 History of Hepatitis B Vaccine: Unknown (Chanel Cosme M.D.) Problems/Secondary Diagnoses: Hypertensive urgency Basilar migraine Rheumatoid arthritis HTN History of menorrhagia and endocervical polypectomy Hepatomegaly Liver hemangioma Gallbladder sludge Right upper quadrant abdominal pain Right ankle synovitis Microscopic hematuria Thyroid nodule Vitamin D deficiency Nausea/vomiting (Chante Gutierrez MD) Medication Reconciliation New Medications: Acetaminophen (Sb Non-Aspirin Extra Stre) 500 Mg Tab 1000 MG PO Q8 for 30 Days, TAB Amlodipine Besylate (Amlodipine Besylate) 5 Mg Tab 5 MG PO QAM for 30 Days, #30 TAB Cholecalciferol (Vitamin D3) 1,000 Inter.unit Tab 1000 INTER.UNIT PO QAM for 30 Days, TAB OTC Methocarbamol (Methocarbamol) 500 Mg Tab 500 MG PO TID PRN for for neck or rib pain, #30 TAB Spironolactone (Spironolactone) 25 Mg Tab 25 MG PO QAM for 30 Days, #30 TAB Changed Medications: Methylprednisolone (Medrol) 4 Mg Tab 16 MG PO DAILY for 30 Days (Changed from: 8 MG; TWO 4 MG TABLETS) x2 days, then 12mg daily x2days, then 8 mg daily. Continued Medications: Adalimumab (Humira) 40 Mg/0.8 Ml Kit 40 MG INJ WK Multivitamin (Multivitamin) Tab 1 TAB PO DAILY Discontinued Medications: Chlorthalidone (Chlorthalidone) 25 Mg Tab 12.5 MG PO DAILY 1/2 0F A 25 MG TABLET Discharge Exam Review of Systems: Constitutional: + problem reported (dizziness upon standing at times), No fever, No chills, No sweats, No weakness Respiratory: No shortness of breath, No dyspnea on exertion Cardiovascular: No chest pain, No edema, No palpitations Abdomen: No pain, No nausea, No vomiting, No diarrhea, No constipation Musculoskeletal: + problem reported (sensation of cramping like pain in intercostal area at times, headache at posterior side of head), No joint pain Neurologic: No paralysis Physical Exam: General Appearance: WD/WN, no apparent distress Eyes: normal inspection, EOMI ENT: hearing grossly normal Respiratory/Chest: lungs clear, normal breath sounds, no respiratory distress, no accessory muscle use, + pertinent finding (tender to palpation along ribs 7-8 bilaterally, tenderness at subscapular joint, relief of pain when finger tip pressure applied at occiput.) Cardiovascular: regular rate, rhythm, no edema, no gallop, no JVD Abdomen / GI: normal bowel sounds, soft, + tenderness (mild tenderness to palpation in right and left LQs) Extremities: normal inspection, normal range of motion, non-tender, + pertinent finding (negative for tenderness at MCP, PIP and DIP joints in hands bilaterally, elbow and shoulder joints neg b/l.) Neurologic/Psychiatric: alert, normal mood/affect Skin: normal color, warm/dry, no rash (Chanel Cosme M.D.) Hospital Course 36 year old female with PMH sig for rheumatoid arthritis, hypertension, h/o DVT here for intractable pain in her torso and head ache. Her symptoms began insidiously over the day at work, associated with headache, tightness in the chest and pain in her hands, so much so that when she tried driving home from work, she was unable to bend her fingers over the driving wheel due to the pain that it caused. Tightness in chest she said was located on her anterior chest from her neck to her stomach and sides of her ribs. Pt said sitting slumped made it worse, with no identified triggers, intermittent tight pain in her chest area, not associated with SOB or sweating or panic feelings. Came to the ED - ECG NSR with incomplete RBBB, CXR neg, CT head no acute findings, ESR 15, Trp neg x3. Held echo, given atypical chest pain. In ED also given Dilaudid x2 for pain, did not touch the pain followed by emesis. OWEN persisted - band like pain in occipital area. High blood pressure during painful episode, as high as 202/130. Of note pt has taken Humira treatment interrupted for weeks at a time due to opening machine cleaner surgery, (march 2016 - polyps, myomectomy. No complications) Also of note, was recently placed on antihypertensive medicine Chlorthalidone 12.5 by her firepot operator and tender for recent high blood pressures since Thursday (has only taken for 5-6 days at time of admission). Symptoms were not present before then. Pt also reports taking ibuprofen daily for years for rheumatoid pain. PMH sig for rheumatoid arthiritis since 2004 (on Humira injection weekly, Medrol 8mgOD), h/o flairs including costochondritis, h/o basilar migraines, also menorrhagia necessitating hysteroscopy and , synovectomy in RT foot. Also + for endometriosis, FH significant for: father () suffered [place] age 40s, underwent cardiac and renal transplant, brain aneurysm as well. *Per outpatient charts, Brother ( ) glioblastoma multiforme in his 30s. Mother (living) has emphysema. SH: 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 Torso pain associated with high blood pressure and headache Rheumatoid arthritis flair with costochondritis, basilar migraine Atypical CP reproducible on exam has been off of regular weekly injections of her Humira due to myomectomy in March. Longstanding h/o rheumatoid arthritis, treated with Medrol 8mg daily which when she has a flair she doubles the dose. Ordered Humira injection to be given here. Spoke at length with her firepot operator and tender Dr. Reynolds, and she recommended medrol 30mg IV, as well as specific physcial exam focusing on her joints (hands and shoulders especially) as these are typical areas of pain for her during flair, as is costochondral points, follow up in 2 weeks post discharge if persistent pain. Appreciate her help. Morphine 2-4 q6, Ketorolac inj once, Ketorolac PO, Tylenol scheduled. Pt tolerated but hypertension persisted. Given possibility that blood pressure 2/2 chronic NSAID use, dc'ed NSAIDs, and began Ribaxin for muscle relaxing. On Medrol 30mg IV - given steroid taper on discharge. Humira injection given x1 Heating pad Patient's description of tightness and band-like quality to pain sounds musculoskeletal. Added methocarbamol 500 TID to relieve muscle spasms. Pt tolerated well in hospital, sent home on discharge with script. Pt tolerated well, but headache and dizziness abruptly came on on Day 2 and 3. Liver U/S ordered to r/o budd-chiari - Result: negative for acute changes. Given + FH (brother, father) ordered Head MRA, Brain MRI which were both negative for acute proceses. Thyroid nodule noted on scan, TSH wnl. Hypertension - uncontrolled 202/130 on admission. Otherwise, systolic 125-168 and diastolic 69-107. Stopped chlorthalidone 12.5 mg (Patient had begun this med days before onset of acute symptoms. Possible adverse effect profile.) Put on Aldactone 25mg OD and Amlodipine 5mg OD. Recommend outpatient BP management with PCP. Given pt's age and gender, ordered VMA and metanephrines 24-hour urine labs to screen for pheochromocytoma. Labs pending - PCP follow up pending results. Lab abnormality - Hematuria 2+ recent h/o menorrhagia requiring opening machine cleaner surgery Followed. no s/s of bleeding otherwise, no dizziness or lightheadedness, no letty bleeding anywhere. Abnormality on Liver scan- hyperechoic lesion the right hepatic lobe Per [facility]: The liver is enlarged, measuring over 19 cm in length. A 2.0 cm hyperechoic lesion the right hepatic lobe is typical in appearance for a hemangioma. This is also seen [place] [address] Unchanged since previuous scan. Follow up with PCP. Enlarged thyroid on CT "There is a 24 mm left lobe thyroid nodule." TSH is 1.10 (04/23/17.) Follow with PCP if changes. Hypovitaminosis D ordered 1000 units to be given daily Code: FULL PPX: protonix, SCDs/TEDs (holding chemical anticoagulation given h/o menorrhagia requiring D&C, agestin.) Total Time Spent: Greater than 30 minutes This includes examination of the patient, discharge planning, medication reconciliation, and communication with other providers. (Chanel Cosme M.D.) Discharge Instructions Please refer to the electronic Patient Visit Report (Discharge Instructions) for additional information. (Chanel Cosme M.D.) Follow-Up With PCP within 1-2 weeks With Wire Technician as scheduled in 1-2 weeks (Chante Gutierrez MD) Additional Copies To Smita Galdamez M.D.; Letty Mariscal M.D. Reviewed: Pt Seen/Exam by Me (Chante Gutierrez MD) History Resident Physician Supervision Note: I was present with Dr. Cosme during the history and exam. I discussed the case with the resident and agree with the findings and plan as documented in the note. Any exceptions or clarifications are listed here: Pt had another episode of her squeezing torso pain with pain radiating up into posterior neck and occiput, moderate pain, caused flushing sensation in torso and neck, associated with vertigo/room spinning, some nausea, and BP elevated again in 150s-160s systolic. Exact same presentation she has had off and on for several days. She is frustrated and wants to know why this is happening. Started on amlodipine and aldactone and BPs improved. Pain was resolved prior to discharge. Renal artery Duplex US was negative for signs of NATIVIDAD or fibromuscular dysplasia 24 hr urine collected prior to dc for workup for pheo. Vitals reviewed No acute distress, sitting up in bed and very pleasant, alert awake and oriented 3 Regular rate and rhythm, no murmurs gallops or rubs Lungs clear to auscultation bilaterally, no wheezes crackles or rhonchi Positive bowel sounds soft, positive tenderness to palpation in the right upper quadrant, negative Marcelo sign, no definite hepatosplenomegaly palpated, no bruit Extremities with mild synovitis at the left third MCP joint, full range of motion of all joints, no tenderness to palpation over her other joints, right ankle with trace effusion MSK: Exquisite tenderness to palpation of the rib cage and anterior chest wall diffusely Skin no rashes 36-year-old female history of rheumatoid arthritis, newly diagnosed hypertension , here with severe likely musculoskeletal chest pain radiating into the head with new onset headaches associated with nausea and vomiting as well as dizziness and labile hypertension. Patient states that this is not her typical flare of rheumatoid arthritis and in fact she was off of Humira for about 12 weeks earlier this year for her ankle surgery and had no symptoms whatsoever. Perhaps this is a reaction to the chlorthalidone she was started on last week Also with headaches, vertigo, and previous h/o Basilar migraines for which she saw Neurology. Brain MRI and Head MRA negative. Robaxin helped her symptoms. -Given recent progesterone use and right upper quadrant pain, checked LFTs which were normal and right upper quadrant ultrasound to look for hepatic or portal vein thrombosis--> no thrombosis but with gallbladder sludge--> suggest possible HIDA as outpatient if symptoms persist and/or LFTs elevated -starting amlodipine which may help as prophylaxis of basilar migraines -continue Robaxin as muscle relaxer for MSK pain of torso and neck which could be muscle spasm, tension--> also recommend return to outpt PT for PT for headaches and neck pain -f/u Wire Technician -taper down steroids to home dose fairly quickly HTN-labile, is on chronic NSAIDs, could be secondary to pain but was going on prior to when pain started -stop all NSAIDs while BPs labile -f/u with PCP regarding results of 24 hr urine collection for pheochromocytoma -NATIVIDAD and fibromuscular dysplasia ruled out as secondary cause of HTN -consideration could be made for Carcinoid as well-can be worked up as outpt -Stop chlorthalidone in case of adverse side effect and start Aldactone instead , follow potassium levels as outpatient -started amlodipine 5mg daily -f/u PCP -Continue pain control Vit D def--Start vitamin D 1000 units daily on top of which she takes and her multivitamin Documented By: Chante Gutierrez (Chante Gutierrez MD)
[2017-04-27] MEDS ORDERED: METHYLPREDNISOLONE 16 MG TAB PO SCH (08:00)
[2017-04-27] MEDS ORDERED: AMLODIPINE BESYLATE 5 MG TAB PO SCH (08:00)
== END 2017-04-26 22:26 | disposition home or self-care (01) ==
LOC: C.EDB 14:49 → C.2T 19:25 → ENRESERV 19:35 → C.MS4W 04-26 12:43
PROVIDERS: ADMIT Hospitalist; ATTEND Family Medicine
DX: G43.109 Migraine with aura, not intractable, without status migrainosus (principal); M08.40 Pauciarticular juvenile rheumatoid arthritis, unspecified site; I16.0 Hypertensive urgency; R16.0 Hepatomegaly, not elsewhere classified; D18.09 Hemangioma of other sites; K82.8 Other specified diseases of gallbladder; E04.1 Nontoxic single thyroid nodule; E55.9 Vitamin D deficiency, unspecified; M65.871 Other synovitis and tenosynovitis, right ankle and foot; Z79.899 Other long term (current) drug therapy

== ENCOUNTER → 2017-05-22 | Outpatient (CLI) | payer BC ==
[~2017-05-22] MED LIST changes: +ACET-24 PO; -DICL1SOL6 TOP; -EPP3/2 IM; -IBUP-103 PO; +METH1TAB81 PO; -METH4TAB31 PO; +NRV5 PO; +OPTIRAY 320 IV PRN; -OXYC-57 PO; +RBX500 PO; +SPR25 PO; -VNTHFA/IN INH; +VTMD1000 PO
--- NOTE | 2017-05-22 16:25 | DIAGNOSTIC IMAGING REPORT ---
(CHEST FOR PE) ANGIO WITH CT DOSE: 610.58 mGycm HISTORY: 36 years-old Female with DYSPNEA, SCHEDULED PE STUDY. Acute dyspnea with shortness of breath and elevated d-dimer. History of high blood pressure. TECHNIQUE: Multiple CTA images of the chest were obtained after the intravenous administration of 93 ml Optiray 320. Coronal and sagittal MIPS were obtained from the axial data set and were submitted for review. A dose lowering technique was utilized adhering to the principles of ALARA. COMPARISON: CTA of the chest 04/24/2017. FINDINGS: CTA: Heart is normal in size without pericardial effusion. The thoracic aorta is normal in both course and caliber without dissection or aneurysm. The imaged great vessels are patent. The pulmonary arterial tree is well-opacified to the level of the proximal subsegmental branches and demonstrates no focal filling defect to suggest pulmonary thromboembolic disease. CT CHEST: Low attenuating heterogeneous nodule of the inferior left thyroid is again seen measuring approximately 2.2 x 2.2 cm. Additional smaller nodules are also seen throughout the left thyroid. No pathologic adenopathy about the chest identified. There is no pneumothorax, pleural effusion or focal airspace consolidation. No suspicious pulmonary nodules identified. Central airways are patent. No acute abnormality of the imaged upper abdomen. Ill-defined low attenuating lesion of the subserosal posterior right hepatic lobe is again seen measuring 2.0 cm as seen on image 24 of series 2. This is unchanged from comparison. Soft tissues are unremarkable. The bones appear intact. IMPRESSION: 1. No acute cardiopulmonary process, specifically no acute aortic pathology or pulmonary thromboembolic disease. 2. Heterogeneous low attenuating nodule of the inferior left thyroid lobe is again seen, 2.2 cm. 3. Ill-defined low attenuating lesion of the subserosal posterior right hepatic lobe is unchanged, 2.0 cm which may reflect a hemangioma however is indeterminate. The above report was generated using voice recognition software. It may contain grammatical, syntax or spelling errors. Electronically signed by: Anthony Medeiros M.D. 05/22/2017 4:24 PM Dictated Date/Time: 05/22/2017 4:17 PM
== END | disposition home or self-care (01) ==
LOC: C.CTS 15:49
PROVIDERS: ATTEND Physician Assistant
DX: R06.00 Dyspnea, unspecified (principal)

== ENCOUNTER → 2017-06-23 | Outpatient (CLI) | payer BC ==
[~2017-06-23] MED LIST changes: -OPTIRAY 320 IV PRN
--- NOTE | 2017-06-25 02:34 | PULMONARY FUNCTION TEST ---
This interpretation is based off ATS criteria. SPIROMETRY: Mild obstructive ventilatory disease. BRONCHODILATOR RESPONSE: No significant response. LUNG VOLUMES: Within normal limits. DIFFUSION CAPACITY: Within normal limits. INTERPRETATION: Mild obstructive ventilatory disease based off ATS criteria. GOLD criteria would note this patient has normal pulmonary function studies.
== END | disposition home or self-care (01) ==
LOC: C.RC 10:23
PROVIDERS: ATTEND Physician Assistant
DX: R05 Cough (principal)

== ENCOUNTER 2017-11-11 17:41 | Emergency (ER) | payer BC, OTHER ==
[2017-11-11 17:44] VITALS: TEMP 36.7
[2017-11-11] MEDS ORDERED: SODIUM CHLORIDE 0.9% 1000ML 1,000 ML IV STA ×2 (18:20→20:22)
[2017-11-11] MEDS ORDERED: METH500T37 PO (18:23)
[2017-11-11] MEDS ORDERED: DILT-213 PO (18:23)
[2017-11-11] MEDS ORDERED: METH1TAB81 PO (18:23)
[2017-11-11] MEDS ORDERED: HYG/25 PO (18:23)
[2017-11-11] MEDS ORDERED: CERT200K SQ (18:23)
[2017-11-11] MEDS ORDERED: SPIR25TA PO (18:24)
[2017-11-11] MEDS ORDERED: CHOL1000 PO (18:31)
[2017-11-11 18:33] LABS: BASO % 0.2 %; BASO ABS # 0.02 K/uL (0-0.2); EOS ABS # 0.11 K/uL (0-0.5); HEMATOCRIT 38.1 % (37-47); HEMOGLOBIN 13.6 g/dL (12.0-16.0); IG# 0.03 K/uL (0.00-0.02); LYMPH % 43.8 %; LYMPH ABS # 4.88 K/uL (1.2-3.4); MEAN CELL VOLUME 86.8 fL (80-100); MEAN CORPUSCULAR HGB CONC 35.7 g/dl (32-36); MEAN PLATELET VOLUME 8.6 fL (7.4-10.4); MONO % 8.2 %; MONO ABS # 0.91 K/uL (0.11-0.59); NEUT % 46.5 %; NEUT ABS # 5.19 K/uL (1.4-6.5); PLATELET COUNT 297 K/uL (130-400); RED CELL DISTRIBUTION WIDTH CV 13.1 % (11.5-14.5); RED CELL DISTRIBUTION WIDTH SD 41.9 fL (36.4-46.3); WHITE BLOOD COUNT 11.14 K/uL (4.8-10.8)
[2017-11-11 18:55] LABS: ALBUMIN 3.3 gm/dl (3.4-5.0); ALT/SGPT 22 U/L (12-78); AST/SGOT 15 U/L (15-37); BLOOD UREA NITROGEN 13 mg/dl (7-18); CALCIUM 8.4 mg/dl (8.5-10.1); CARBON DIOXIDE 29 mmol/L (21-32); CREATININE 1.33 mg/dl (0.60-1.20); GLUCOSE 112 mg/dl (70-99); POTASSIUM 3.3 mmol/L (3.5-5.1); SODIUM 134 mmol/L (136-145)
[2017-11-11 19:06] LABS: ALKALINE PHOSPHATASE 94 U/L (45-117); TOTAL PROTEIN 7.2 gm/dl (6.4-8.2)
--- NOTE | 2017-11-11 19:15 | DIAGNOSTIC IMAGING REPORT ---
TWO VIEW CHEST CLINICAL HISTORY: Cough. FINDINGS: PA and lateral chest radiographs are compared to study dated 04/23/2017 and correlated with chest CT dated 05/22/2017. The cardiomediastinal silhouette is unremarkable. The lungs and pleural spaces are clear. There is no pneumothorax. The bony thorax appears intact. There is mild thoracic scoliosis. IMPRESSION: No active disease in the chest. Electronically signed by: Bonifacio Vivas M.D. 11/11/2017 7:14 PM Dictated Date/Time: 11/11/2017 7:13 PM
[2017-11-11] MEDS ORDERED: POTASSIUM CHLORIDE 10 MEQ TABCR PO STA (19:35)
[2017-11-11] MEDS ORDERED: OPTIRAY 320 IV PRN (21:00)
--- NOTE | 2017-11-11 21:10 | DIAGNOSTIC IMAGING REPORT ---
CT ANGIOGRAM OF THE CHEST CLINICAL HISTORY: Cough. COMPARISON STUDY: Chest x-ray dated 11/11/2017. Chest CT scans dated 05/22/2017 and 02/27/2009. Thyroid ultrasound dated 12/29/2011. Abdominal CT dated 08/24/2006. TECHNIQUE: Following the IV administration of 116 cc of Optiray 320, CT angiogram of the chest was performed from the upper abdomen to the thoracic inlet utilizing the pulmonary embolus protocol. Images are reviewed in the axial, sagittal, and coronal planes. 3-D MIPS images are created and assessed. IV contrast was administered without complication. A dose lowering technique was utilized adhering to the principles of ALARA. Examination is degraded by motion artifact. CT DOSE: 391.75 mGy.cm FINDINGS: Thyroid: Imaged portions of the thyroid gland are normal in size and attenuation. There are numerous low-attenuation thyroid nodules. The largest is in the left lobe and measures up to 1.9 cm. These were better characterized on previous thyroid ultrasounds. Thoracic aorta: The thoracic aorta is normal in caliber and demonstrates standard 3-vessel arch anatomy. No dissection is seen. Pulmonary vasculature: The pulmonary trunk is normal in caliber. There are no filling defects identified in main, lobar, or segmental pulmonary branches to suggest pulmonary embolus. Heart: The heart is normal in size and configuration, and without pericardial effusion. Lungs and pleural spaces: The lungs and pleural spaces are clear. A fat-containing Bochdalek hernia is incidentally noted the left lung base. The trachea and central airways are patent. Mediastinum: There is no mediastinal lymphadenopathy. Rosalie: Clear. Axillae: There is no axillary lymphadenopathy. Upper abdomen: Partially visualized upper abdominal viscera is within normal limits. A 1.9 cm low-attenuation lesion is seen in the right hepatic lobe on image #46. This has been present dating back to 2006 and likely represents a hemangioma. Skeletal structures: No lytic or blastic bony lesions are seen. Arthritic change is seen in the shoulders. IMPRESSION: 1. There is no evidence of pulmonary embolus in the main, lobar, or segmental pulmonary arteries.. 2. The lungs are clear. Electronically signed by: Bonifacio Vivas M.D. 11/11/2017 9:08 PM Dictated Date/Time: 11/11/2017 9:04 PM
[2017-11-11] MEDS ORDERED: KETOROLAC TROMETHAMINE 15 MG/ML VIAL IM STA (21:13)
[2017-11-11] MEDS ORDERED: MAGNESIUM SULFATE 1GM / D5W 100 ML IV STA (21:13)
[2017-11-11] MEDS ORDERED: BENZONATATE 100MG CAP PO ONE (21:30)
[2017-11-11] MEDS ORDERED: NURSING VERBAL MED ORDER ONE (21:30)
[2017-11-11] MEDS ORDERED: CYCLOBENZAPRINE HCL 5 MG TAB PO STA (22:11)
[2017-11-11 22:44] LABS: ISTAT IONIZED CALCIUM 1.13 mmol/l (1.12-1.32); ISTAT POTASSIUM 4.1 mEq/L (3.3-5.0)
--- NOTE | 2017-11-11 23:43 | EMERGENCY ROOM VISIT NOTE ---
History Report prepared by Mallorie: Charlotte Bernal Under the Supervision of: Dr. Michelle Fonseca D.O. First contact with patient: 17:52 Chief Complaint: CARDIAC ASSESSMENT Stated Complaint: HEART FLUTTERS, SOB, ELEVATED BP 151/107 History of Present Illness The patient is a 37 year old female who presents to the Emergency Room with complaints of intermittent palpitations starting yesterday. The patient is having flutters in her heart which makes her feel like coughing. She then started having cramps in her forearms, calves and thighs. She thought she might have been dehydrated, so she drank water. Today, her face felt hot and her heart continued to flutter again. She then started feeling dizzy. She checked her blood pressure and found that it was 148/94. Her blood pressure had been under control recently. She checked her blood pressure again and found that it was 151/107. The coughing seems to occur more when she is standing. She denies any swelling, fever, or chills. She had a cardiac work up last fall which showed some minor flutters of the heart and RBBB. She has a history of rheumatoid arthritis. She had cramping previously which seemed to improve after having a drink with high potassium. She notes her father had an FL at age 48 requiring LVAD. Source of History: patient Onset: yesterday Position: chest Quality: other (palpitations) Timing: intermittent Associated Symptoms: + cough, No fevers, No chills Note: Pt reports cramping in arms and legs, flushed face, dizziness. Review of Systems See HPI for pertinent positives & negatives. A total of 10 systems reviewed and were otherwise negative. Past Medical & Surgical Medical Problems: (1) Chest pain (2) Headache (3) Pauciarticular juvenile rheumatoid arthritis Surgical Problems: (1) Previous section Family History FL (myocardial infarction) Social History Smoking Status: Never Smoker Alcohol Use: none Drug Use: none Marital Status: Housing Status: lives with family Occupation Status: employed Current/Historical Medications Scheduled Certolizumab Pegol (Cimzia), 200 MG SQ Q2W Chlorthalidone (Hygroton), 12.5 MG PO QAM Cholecalciferol (Vitamin D3), 1 TAB PO DAILY Cyclobenzaprine Hcl (Flexeril), 1-2 TABS PO TID Diltiazem Hcl Coated Beads (Diltiazem Hcl Er), 120 MG PO QAM Methylprednisolone (Medrol), 4 MG PO QAM Multivitamin (Multivitamin), 1 TAB PO HS Spironolactone (Aldactone), 25 MG PO QAM Scheduled PRN Methocarbamol (Robaxin), 500 MG PO DAILY PRN for Muscle Spasms Allergies Coded Allergies: BEE STING (Verified Allergy, Severe, ANAPHYLAXIS, 04/23/17) NO KNOWN DRUG ALLERGIES (Verified Allergy, Unknown, ., 04/23/17) Amlodipine (Unverified Adverse Reaction, Severe, LUNGS FILL UP WITH FLUID , 11/11/17) Drospirenone (Unverified Adverse Reaction, Severe, VOMITING, 11/11/17) Ethinyl Estradiol (Unverified Adverse Reaction, Severe, VOMITING, 11/11/17) Hydromorphone (Verified Adverse Reaction, Severe, emesis, 04/26/17) Physical Exam Vital Signs Date Time Temp Pulse Resp B/P (MAP) Pulse Ox O2 Delivery O2 Flow Rate FiO2 11/12/17 00:04 94 18 117/63 97 11/11/17 22:21 97 16 121/61 98 Room Air 11/11/17 22:05 98 11/11/17 20:40 92 18 133/79 99 Room Air 11/11/17 18:51 98 Room Air 11/11/17 18:40 87 20 143/82 98 Room Air 11/11/17 18:04 98 11/11/17 17:44 36.7 100 20 162/103 96 Room Air Physical Exam GENERAL: alert, well appearing, well nourished, no distress, non-toxic EYE EXAM: normal conjunctiva, PERRL and EOM's grossly intact OROPHARYNX: no exudate, no erythema, lips, buccal mucosa, and tongue normal and mucous membranes are moist NECK: supple, no nuchal rigidity, no adenopathy, non-tender LUNGS: Clear to auscultation. Normal chest wall mechanics, no w/r/r HEART: no murmurs, S1 normal and S2 normal, no ectopy noted on tele ABDOMEN: abdomen soft, non-tender, normo-active bowel sounds, no masses, no rebound or guarding. BACK: Back is symmetrical on inspection and there is no deformity, no midline tenderness, no CVA tenderness. SKIN: no rashes and no bruising UPPER EXTREMITIES: Mild ulnar deviation of her digits noted consistent with her RA. LOWER EXTREMITIES: No pitting edema. No reproducible calf pain, negative Homans' s sign bilaterally. NEURO EXAM: Normal sensorium, cranial nerves II-XII grossly intact, normal speech, no gross weakness of arms, no gross weakness of legs. Medical Decision & Procedures ER Provider Diagnostic Interpretation: Radiology results have been interpreted by the radiologist and reviewed by me. TWO VIEW CHEST CLINICAL HISTORY: Cough. FINDINGS: PA and lateral chest radiographs are compared to study dated 04/23/2017 and correlated with chest CT dated 05/22/2017. The cardiomediastinal silhouette is unremarkable. The lungs and pleural spaces are clear. There is no pneumothorax. The bony thorax appears intact. There is mild thoracic scoliosis. IMPRESSION: No active disease in the chest. Electronically signed by: Bonifacio Vivas M.D. 11/11/2017 7:14 PM Dictated Date/Time: 11/11/2017 7:[address] ANGIOGRAM OF THE CHEST CLINICAL HISTORY: Cough. COMPARISON STUDY: Chest x-ray dated 11/11/2017. Chest CT scans dated 05/22/2017 and 02/27/2009. Thyroid ultrasound dated 12/29/2011. Abdominal CT dated 08/24/2006. TECHNIQUE: Following the IV administration of 116 cc of Optiray 320, CT angiogram of the chest was performed from the upper abdomen to the thoracic inlet utilizing the pulmonary embolus protocol. Images are reviewed in the axial, sagittal, and coronal planes. 3-D MIPS images are created and assessed. IV contrast was administered without complication. A dose lowering technique was utilized adhering to the principles of ALARA. Examination is degraded by motion artifact. CT DOSE: 391.75 mGy.cm FINDINGS: Thyroid: Imaged portions of the thyroid gland are normal in size and attenuation. There are numerous low-attenuation thyroid nodules. The largest is in the left lobe and measures up to 1.9 cm. These were better characterized on previous thyroid ultrasounds. Thoracic aorta: The thoracic aorta is normal in caliber and demonstrates standard 3-vessel arch anatomy. No dissection is seen. Pulmonary vasculature: The pulmonary trunk is normal in caliber. There are no filling defects identified in main, lobar, or segmental pulmonary branches to suggest pulmonary embolus. Heart: The heart is normal in size and configuration, and without pericardial effusion. Lungs and pleural spaces: The lungs and pleural spaces are clear. A fat-containing Bochdalek hernia is incidentally noted the left lung base. The trachea and central airways are patent. Mediastinum: There is no mediastinal lymphadenopathy. Rosalie: Clear. Axillae: There is no axillary lymphadenopathy. Upper abdomen: Partially visualized upper abdominal viscera is within normal limits. A 1.9 cm low-attenuation lesion is seen in the right hepatic lobe on image #46. This has been present dating back to 2006 and likely represents a hemangioma. Skeletal structures: No lytic or blastic bony lesions are seen. Arthritic change is seen in the shoulders. IMPRESSION: 1. There is no evidence of pulmonary embolus in the main, lobar, or segmental pulmonary arteries.. 2. The lungs are clear. Electronically signed by: Bonifacio Vivas M.D. 11/11/2017 9:08 PM Dictated Date/Time: 11/11/2017 9:04 PM Laboratory Results 11/11/17 18:20 Red Blood Count 4.39, Mean Corpuscular Volume 86.8, Mean Corpuscular Hemoglobin 31.0, Mean Corpuscular Hemoglobin Concent 35.7, Mean Platelet Volume 8.6, Neutrophils (%) (Auto) 46.5, Lymphocytes (%) (Auto) 43.8, Monocytes (%) (Auto) 8.2, Eosinophils (%) (Auto) 1.0, Basophils (%) (Auto) 0.2, Neutrophils # (Auto) 5.19, Lymphocytes # (Auto) 4.88, Monocytes # (Auto) 0.91, Eosinophils # (Auto) 0.11, Basophils # (Auto) 0.02 11/11/17 18:20 Test 11/11/17 18:20 11/11/17 22:30 White Blood Count 11.14 K/uL (4.8-10.8) Red Blood Count 4.39 M/uL (4.2-5.4) Hemoglobin 13.6 g/dL (12.0-16.0) Hematocrit 38.1 % (37-47) Mean Corpuscular Volume 86.8 fL (80-100) Mean Corpuscular Hemoglobin 31.0 pg (25-34) Mean Corpuscular Hemoglobin Concent 35.7 g/dl (32-36) Platelet Count 297 K/uL (130-400) Mean Platelet Volume 8.6 fL (7.4-10.4) Neutrophils (%) (Auto) 46.5 % Lymphocytes (%) (Auto) 43.8 % Monocytes (%) (Auto) 8.2 % Eosinophils (%) (Auto) 1.0 % Basophils (%) (Auto) 0.2 % Neutrophils # (Auto) 5.19 K/uL (1.4-6.5) Lymphocytes # (Auto) 4.88 K/uL (1.2-3.4) Monocytes # (Auto) 0.91 K/uL (0.11-0.59) Eosinophils # (Auto) 0.11 K/uL (0-0.5) Basophils # (Auto) 0.02 K/uL (0-0.2) RDW Standard Deviation 41.9 fL (36.4-46.3) RDW Coefficient of Variation 13.1 % (11.5-14.5) Immature Granulocyte % (Auto) 0.3 % Immature Granulocyte # (Auto) 0.03 K/uL (0.00-0.02) Prothrombin Time 10.7 SECONDS (9.0-12.0) Prothromb Time International Ratio 1.0 (0.9-1.1) D-Dimer 960 ug/L FEU (0-500) Estimated GFR () 58.6 Estimated GFR (Non- 50.6 BUN/Creatinine Ratio 9.7 (10-20) Calcium Level 8.4 mg/dl (8.5-10.1) Magnesium Level 2.0 mg/dl (1.8-2.4) Total Bilirubin 0.4 mg/dl (0.2-1) Aspartate Amino Transf (AST/SGOT) 15 U/L (15-37) Alanine Aminotransferase (ALT/SGPT) 22 U/L (12-78) Alkaline Phosphatase 94 U/L (45-117) Troponin I < 0.015 ng/ml (0-0.045) Pro-B-Type Natriuretic Peptide 84 pg/ml (0-450) Total Protein 7.2 gm/dl (6.4-8.2) Albumin 3.3 gm/dl (3.4-5.0) Globulin 3.9 gm/dl (2.5-4.0) Albumin/Globulin Ratio 0.8 (0.9-2) Thyroid Stimulating Hormone (TSH) 1.090 uIu/ml (0.300-4.500) Bedside Hemoglobin 12.2 g/dl (12.0-16.0) Bedside Hematocrit 36 % (37-47) Bedside Sodium 139 mEq/L (135-144) Bedside Potassium 4.1 mEq/L (3.3-5.0) Bedside Chloride 100 mEq/L (101-112) Bedside Total CO2 27 mEq/l (24-31) Anion Gap 17.0 mmol/L (16-25) Bedside Blood Urea Nitrogen 12 mg/dl (7-18) Bedside Creatinine 1.0 mg/dl (0.6-1.3) Bedside Glucose (other) 96 mg/dl (70-99) Bedside Ionized Calcium (Augie) 1.13 mmol/l (1.12-1.32) Laboratory results per my review. Medications Administered Medications (Trade) Dose Ordered Sig/[place] Route Start Time Stop Time Status Last Admin Dose Admin Sodium Chloride 1,000 ml @ 999 mls/hr Q1H1M STAT IV 11/11/17 18:20 11/11/17 19:20 DC 11/11/17 18:38 999 MLS/HR Potassium Chloride (Klor-Con M10) 40 meq NOW STAT PO 11/11/17 19:35 11/11/17 19:37 DC 11/11/17 19:48 40 MEQ Sodium Chloride 1,000 ml @ 999 mls/hr Q1H1M STAT IV 11/11/17 20:22 11/11/17 21:22 DC 11/11/17 20:56 999 MLS/HR Magnesium Sulfate 100 ml @ 100 mls/hr NOW STAT IV 11/11/17 21:13 11/11/17 22:12 DC 11/11/17 21:20 100 MLS/HR Benzonatate (Tessalon Perles Cap) 100 mg NOW ONCE PO 11/11/17 21:30 11/11/17 21:31 DC 11/11/17 21:20 100 MG Miscellaneous Information (Nursing Verbal Med Order) 1 ea ONE ONCE N/A 11/11/17 21:30 11/11/17 21:31 DC 11/11/17 21:30 1 EA Cyclobenzaprine HCl (Flexeril Tab) 5 mg NOW STAT PO 11/11/17 22:11 11/11/17 22:12 DC 11/11/17 22:20 5 MG ECG Per My Interpretation Indication: palpitations Rate (beats per minute): 91 Rhythm: sinus rhythm Findings: RBBB, no acute ischemic change, other (normal axis) ED Course 1758: The patient was evaluated in room B8. A complete history and physical exam was performed. 1819: Sodium Chloride 1000 ml @ 999 mls/hr IV. 1934: Potassium Chloride 40 meq PO. 2005: I reevaluated the patient. She is going for CT. 2021: Sodium Chloride 1000 ml @ 999 mls/hr IV. 2112: Magnesium Sulfate 100 ml @ 100 mls/hr IV. 2129: Toradol Inj 15 mg IV, Tessalon Perles Cap 100 mg PO. 2158: I reevaluated the patient. I updated her on the results. 2210: Flexeril Tab 5 mg PO. 3: Upon reevaluation, the patient is feeling better. I discussed the findings and the treatment plan with the patient. She verbalizes agreement and understanding. She was discharged home. Medical Decision Differential diagnosis: Etiologies such as premature contractions, electrolyte abnormality, cardiac dysrhythmia, thyroid dysfunction, pulmonary embolism, infection, gastrointestinal, as well as others were entertained. Patient well-appearing here throughout, no significant ectopy or dysrhythmias noted on telemetry. We did attempt to confirm the positional component to her symptoms. Patient did have nearly immediate coughing and sense of palpitations when she was laid flat. Patient's labs reassuring, although mild hypokalemia noted. Patient also had mild elevation of her creatinine compared to prior levels. Given her description of increased activity recently including outdoor activity, I discussed with her possible component of dehydration. Patient given potassium replacement, as well as additional magnesium as a precaution. After continued hydration, electrolyte repletion, and the addition of a mild muscle relaxer, patient stated that her muscle cramping had improved. Patient hemodynamically stable throughout. I do not suspect pericarditis/myocarditis, no evidence of CT of pericardial effusion or PE. No evidence of occult infiltrate or pulmonary edema. Discussed with patient more aggressive rehydration and electrolyte repletion. Discussed recheck by her family doctor of her electrolytes and creatinine next week as an outpatient. Discussed follow -up with her dross puller Dr. Morillo if her symptoms of palpitations persisted. I do not feel patient is high risk for sudden cardiac . Patient well- appearing at time of discharge, tolerated p.o., all questions answered at bedside, discussed symptoms to watch and return for, she and verbalized understanding were agreeable with plan. Medication Reconcilliation Current Medication List: was personally reviewed by me Blood Pressure Screening Patient's blood pressure: Elevated blood pressure Blood pressure disposition: Referred to PCP Impression Primary Impression: Palpitations Additional Impressions: Muscle spasm Hypokalemia Dehydration Cough Scribe Attestation The scribe's documentation has been prepared under my direction and personally reviewed by me in its entirety. I confirm that the note above accurately reflects all work, treatment, procedures, and medical decision making performed by me. Departure Information Dispostion Home / Self-Care Prescriptions Cyclobenzaprine Hcl (FLEXERIL) 5 Mg Tab 1-2 TABS PO TID for Muscle Spasms, #10 TAB PRN Prov: Michelle Fonseca, DO 11/11/17 Referrals Caesar Mariscal M.D. (PCP) Patient Instructions My [facility] Additional Instructions Please drink more water and stay well-hydrated. Please have your family doctor recheck your electrolytes next week to assure that your potassium is back in normal range and that your kidney function is normal. Please continue your regular medications as prescribed. You may use the muscle relaxer if you have persistent muscle cramps, you may not take it and drive. If you develop worsening cramps, develop fevers, have worsening or persistent palpitations, dizziness, vomiting, chest pain, trouble breathing, noticed blood in your sputum , you have any other new concerns, please return the emergency room. Problem Qualifiers
[2017-11-11] MEDS ORDERED: CYCL5TAB PO (23:44)
[2017-11-12 00:04] VITALS: BP 117/63; PULSE 94; O2SAT 97
== END 2017-11-12 00:04 | disposition home or self-care (01) ==
LOC: C.EDB 17:43
DX: R00.2 Palpitations (principal); E87.6 Hypokalemia; E86.0 Dehydration; M62.838 Other muscle spasm; R05 Cough; Z79.899 Other long term (current) drug therapy; Z88.8 Allergy status to other drugs, medicaments and biological substances; Z91.030 Bee allergy status

== ENCOUNTER 2024-02-16 06:44 | Observation (INO) ==
--- NOTE | 2024-01-13 13:15 | PAT Medication Instructions ---
Medication Instructions Date of Service January 13, 2024 Home Medications Medication Instructions Recorded epinephrine 0.3 mg/0.3 mL 0.3 ml IM UD PRN Allergic Reaction 02/17/23 injection, auto-injector #2 ea albuterol sulfate 2.5 mg/3 mL 2.5 mg (3 mL) inhalation QID PRN 04/14/23 (0.083 %) solution for nebulization shortness of breath or wheezing #75 mL ondansetron 4 mg disintegrating 4 mg PO Q8H PRN nausea and 07/15/23 tablet vomiting #14 tabs apixaban 5 mg tablet 5 mg PO BID #180 tabs 07/24/23 cyclobenzaprine 5 mg tablet 5 mg PO HS PRN muscle spasm #30 11/24/23 tabs adalimumab 40 mg/0.8 mL subcutaneous syringe kit (Humira) 40 mg subcut .Q WED chlorthalidone 25 mg tablet 12.5 mg PO QAM diphenhydramine HCl 25 mg capsule (Benadryl) 50 mg PO Q4H PRN epinephrine 0.3 mg/0.3 mL injection, auto-injector 0.3 ml IM UD PRN albuterol sulfate 2.5 mg/3 mL (0.083 %) solution for nebulization 2.5 mg (3 mL) inhalation QID PRN ondansetron 4 mg disintegrating tablet 4 mg PO Q8H PRN apixaban 5 mg tablet 5 mg PO BID methylprednisolone 4 mg tablet 4 mg PO Q12H cyclobenzaprine 5 mg tablet 5 mg PO HS PRN acetaminophen 500 mg tablet 1,000 mg PO QAM Continue as directed epinephrine 0.3 mg/0.3 mL injection, auto-injector 0.3 ml IM UD PRN(if needed) ASK your prescriber and surgeon apixaban 5 mg tablet 5 mg PO BID(in order for spinal or epidural anesthesia, Eliquis needs to be stopped 72 hours/3 days before surgery. Please check if okay with doctor that prescribes this to you) adalimumab 40 mg/0.8 mL subcutaneous syringe kit (Humira) 40 mg subcut .Q WED DO NOT take the morning of surgery chlorthalidone 25 mg tablet 12.5 mg PO QAM diphenhydramine HCl 25 mg capsule (Benadryl) 50 mg PO Q4H PRN Take morning of surgery With a small sip of water, OTHERWISE NOTHING TO EAT OR DRINK AFTER MIDNIGHT: albuterol sulfate 2.5 mg/3 mL (0.083 %) solution for nebulization 2.5 mg (3 mL) inhalation QID PRN(if needed) ondansetron 4 mg disintegrating tablet 4 mg PO Q8H PRN(if needed) methylprednisolone 4 mg tablet 4 mg PO Q12H acetaminophen 500 mg tablet 1,000 mg PO QAM Take evening before surgery diphenhydramine HCl 25 mg capsule (Benadryl) 50 mg PO Q4H PRN(if needed) albuterol sulfate 2.5 mg/3 mL (0.083 %) solution for nebulization 2.5 mg (3 mL) inhalation QID PRN(if needed) ondansetron 4 mg disintegrating tablet 4 mg PO Q8H PRN(if needed) methylprednisolone 4 mg tablet 4 mg PO Q12H cyclobenzaprine 5 mg tablet 5 mg PO HS PRN(if needed) Other Notes If you have any questions please call us at [phone] or [phone] or [phone] or [phone]
--- NOTE | 2024-01-22 13:11 | Anesthesiology Consultation ---
Date of Service January 22, 2024 Assessment & Plan (1) Encounter for pre-operative examination: Plan - check BSG am DOS. - chronic daily steroid use. - PCP pre-operative evaluation 01/21/24 MN: "...Using the revised cardiac risk index, patient is low risk, class I for cardiovascular complications with upcoming hip replacement surgery. Bigger concerns are healing due to rheumatoid arthritis, chronic steroid therapy and obesity...plans to stop Humira prior to surgery...knows to hold Eliquis prior to surgery. We reviewed EKG, echo in 05/2023. Reviewed chest CT from July. She will have labs today, PAT jose morel..." - pulmonology office visit 09/03/23: "...chronic prednisone therapy consisting of methylprednisolone 4 mg daily and Humira on regular scheduled injections...diagnosis of hypercortisol heart disease...July 2023 feeling shortness of breath...DVT...2 years ago required hospitalization for COVID infection...dyspnea on exertion including work-related reductions...mosaicism consistent with airways abnormalities however her pulmonary function test today show preserved lung physiology with an FEV1 FVC ratio of 66% but a normal FEV1 of 3.04 L 92% of predicted and a normal TLC of 6.71 121% predicted...normal diffusion capacity...possibility of mild airflow obstruction but not the pattern of obliterative bronchiolitis nor interstitial fibrosis that we can see with rheumatoid arthritis but she clearly is at risk for the complication...recommend that she increase her methylprednisolone to 12 mg daily for the next 2 weeks to assess response however I did communicate that for most respect is a normal values in the pulmonary physiology testing would not support any chronic fibrotic or destructive lung disease process and is stated symptomatology following COVID infection..." - cardiology office visit 07/24/23: "...follow up of her chest discomfort...resolution of her jaw and chest discomfort by avoiding salt loading...DVT in June...dizzy for a few hours after her Lovenox shots each time...agreeable to switch to Eliquis...evaluate her need for lifelong anticoagulation due to her heterozygous Factor V Leiden and multiple DVTs. ..bronchial wall thickening with multifocal ground glass densities and mosaic attenuation. A referral to pulmonology in [place] was placed...return to clinic in 6 months..." - patient notes hypoglycemia if does not eat before 11:30 am and is requesting being an early case. Surgeon's office and OR made aware. - Outpatient joint assessment: Patient is currently scheduled for inpatient pathway. If re-evaluated and patient/surgeon requests outpatient pathway, patient is not ideal candidate for outpatient joint program from anesthesia standpoint. Chart Review Chart Review: Acceptable Risk for Surgery and Patient seen in Pre Admission Testing Teaching & Discussion Pre-Anesthesia Teaching/Discussion Notes: Instructed NPO after midnight before surgery, except medications with 15 cc of water. Medication instructions provided according to the PAT guidelines. History Surgery Operation Date: 02/16/24 08:50 Proposed Procedures p Right Total Hip Arthroplasty - Magdiel Haile MD Height/Weight Height: 5 ft 9 in Weight: 103.6 kg Allergies Allergy/AdvReac Type Severity Reaction Status Date / Time bee venom protein (honey bee) Allergy Severe ANAPHYLAXIS Verified 01/22/24 11:12 amlodipine AdvReac Severe REVERSE Verified 01/22/24 11:12 EFFECTS, SWELLING, HEART FAILURE drospirenone AdvReac Mild VOMITING Verified 01/22/24 11:12 ethinyl estradiol AdvReac Mild VOMITING Verified 01/22/24 11:12 prochlorperazine AdvReac Mild Agitated Verified 01/22/24 11:12 [From Compazine] CALCIUM CHANNEL BLOCKERS AdvReac Mild REVERSE Uncoded 01/22/24 11:12 EFFECTS, SWELLING, HEART FAILURE Medications Home Medications Medication Instructions Recorded Confirmed Last Taken adalimumab 40 mg/0.8 mL 40 mg subcut .Q WED 10/19/19 01/22/24 01/11/22 12:00 subcutaneous syringe kit (Humira) chlorthalidone 25 mg tablet 12.5 mg PO QAM 10/01/21 01/22/24 01/20/22 07:00 diphenhydramine HCl 25 mg capsule 50 mg PO Q4H PRN Other 02/16/23 01/22/24 Unknown (Benadryl) epinephrine 0.3 mg/0.3 mL 0.3 ml IM UD PRN Allergic Reaction 02/17/23 01/22/24 Unknown injection, auto-injector #2 ea albuterol sulfate 2.5 mg/3 mL 2.5 mg (3 mL) inhalation QID PRN 04/14/23 01/22/24 Unknown (0.083 %) solution for nebulization shortness of breath or wheezing #75 mL ondansetron 4 mg disintegrating 4 mg PO Q8H PRN nausea and 07/15/23 01/22/24 Unknown tablet vomiting #14 tabs apixaban 5 mg tablet 5 mg PO BID #180 tabs 07/24/23 01/22/24 Unknown methylprednisolone 4 mg tablet 4 mg PO Q12H joint pains 10/06/23 01/22/24 Unknown cyclobenzaprine 5 mg tablet 5 mg PO HS PRN muscle spasm #30 11/24/23 01/22/24 Unknown tabs acetaminophen 500 mg tablet 1,000 mg PO QAM 01/07/24 01/22/24 Unknown fluconazole 150 mg tablet 150 mg PO Q3D 2 doses #2 tabs 01/23/24 Unknown nystatin-triamcinolone 100,000 1 applic topical BID #15 grams 01/23/24 Unknown unit/gram-0.1 % topical ointment Past Medical History Medical History (Updated 01/22/24 @ 16:54 by Jacqui Beaver PA-C) Asthma D/t Covid in Jun 2021- has rescue inhaler-last used 01/21/24 with heat and humidity and prior to that 06/2023 DJD (degenerative joint disease) Dry eye syndrome pt states eyes very irritated s/p hyster GERD (gastroesophageal reflux disease) controlled, stable per pt Hepatic steatosis Heterozygous factor V Leiden mutation History of anesthesia reaction "Takes a while to come out" "very groggy" & PONV History of cardiac arrhythmia Follows with Dr. Morillo- per 03/2021 cardio note- hx of palpitations (felt to be PVCs which have resolved) History of COVID-19 06/2021 - lethargic, SOB to covid pneumonia - did breathing treatments - resolved at home History of endometriosis History of postoperative nausea and vomiting notes did well with IV Zofran for hysterectomy-denies needing scop patch History of uterine fibroid Hyperlipidemia Hypertension pt had preeclampsia in 2008 Obesity Peptic ulcer H/o in Jul 2019- symptoms resolved with PPI Recurrent deep vein thrombosis (DVT) LLE DVT in 2008 after c/s and prolonged hospitalization 2/2 peripartum pree clampsia. pt then dx with heterozygous Factor V Leiden mutation. pt then dx with LLE DVT 07/09/23. follows with [facility] H[facility]ology; on anticoagulation Rheumatoid arthritis no cervical ROM limitations Right hip pain Patient denies h/o stroke, seizures, heart attack, heart failure, DM, or blood transfusions. Exercise / Class Metabolic Activity II 4-5 Yardwork/Stairs/Walk up hill (denies chest discomfort or shortness of breath with one flight of stairs) Past Family History Family History Father Family history of reaction to anesthesia PONV Myocardial infarction Renal transplant, status post H/O heart transplant Grandfather (Paternal) Family history of diabetes mellitus patient notes severity included required bilat BKA Aunt Arthritis Sister History of back surgery Mother COPD (chronic obstructive pulmonary disease) Atrial fibrillation Hypothyroidism Osteoarthritis Brother Glioblastoma Other Cancer Gallbladder disease Heart disease Hypertension Past Surgical History Surgical History H/O synovectomy b/l ankle History of section History of esophagogastroduodenoscopy (EGD) History of foot surgery (~2019) synovectomy b/l ankles History of laparoscopy multiple: D&C, hysteroscopy: 08/01/16: MAC sedation at [facility]; ovarian cystectomy History of myomectomy History of tooth extraction S/P foot surgery, right S/P laparoscopic hysterectomy on 01/20/22, Dr. Garcia Past Anesthesia History Other (slow to wake-denies needing re-intubation; parents () had PONV and slowness to wake that was not life threatening) History of PONV No Hx of Motion Sickness and History of PONV (does well with IV medication) Social History Smoking Status: Never smoker Do You Dip or Chew Tobacco: No Hx Alcohol Use: No Hx Substance Use: No substance use type: does not use Review of Systems Occasional snoring, denies witnessed apneas. Patient denies chest pain, shortness of breath, dyspnea on exertion, fever, chills, wheezing, or palpitations. Physical Exam Vital Signs Vitals BP 121/74 P 70 TEMP 98.2 SP02 95% on RA RESP 18 Physical Patient resting comfortably in chair in no acute distress, alert and oriented, responding appropriately throughout visit Full cervical extension range of motion without pain TMD 3.5 finger breadths Mallampati Score 3 Dentition: intact, denies chipped or loose teeth, caps/crowns, implants or bridges Lungs: normal respiratory effort. Good air movement, clear throughout to auscultation, no adventitious breath sounds Cardiac: regular rate and rhythm, no murmurs noted Carotid arteries: negative bruit bilat Lab Results Anesthesia Preop Results Results Anesthesia Widget: WBC 8.99 K/ul (4.8-10.8) 01/22/24 Hgb 13.8 g/dl (12.0-16.0) 01/22/24 Hct 40.7 % (37.0-47.0) 01/22/24 Plt 298 K/uL (130-400) 01/22/24 Na 139 mmol/L (136-145) 01/22/24 K 3.9 mmol/L (3.5-5.1) 01/22/24 Cl 102 mmol/L (98-107) 01/22/24 CO2 31 mmol/L (21-32) 01/22/24 BUN 16 mg/dl (6-23) 01/22/24 Creat 0.74 mg/dl (0.6-1.2) 01/22/24 Glucose Level 103 mg/dl (70-99(Fasting)) H 01/22/24 PT 10.5 Seconds (9.0-12.0) 01/22/24 PTT 29 Seconds (21-31) 01/22/24 INR 1.0 (0.9-1.1) 01/22/24 HA1c 5.4 % (4.5-5.6) 01/22/24 Blood Type A Negative 01/22/24 Antibody Screen NEGATIVE 01/22/24 Testing Laboratory Results Patient was interested in A1c test given family history of DM and chronic steroid use; glucose readings have been elevated intermittently in past to chart review. Electrocardiogram Date: 05/20/23 Sinus bradycardia, rate 59 bpm Low voltage QRS Incomplete RBBB Chest X-Ray Date: 01/22/24 No acute process. Echocardiogram Date: 05/27/23 EF 65% No LV regional wall motion abnormalities Mild cLVH No significant valvular abnormalities Pulmonary Function Test Date: 09/03/23 Mild obstructive ventilatory defect. There was no significant response to bronchodilators. Lung volumes are mildly increased, there are not signs of air trapping Diffusion capacity is not impaired Cervical Spine Date: 01/22/24 1. No acute fracture or subluxation. 2. Moderate intervertebral disc space narrowing at C5-C6 and C6-C7. Other Testing Abdomen pelvis CT 10/06/23 1. Findings suggest cystitis. Correlate with clinical findings and urinalysis. 2. Hepatomegaly and hepatic steatosis. 3. Normal appendix. 4. Additional findings as above. Chest CTA 07/17/23 1. No pulmonary emboli identified. 2. Bronchitis with atelectasis and air trapping. 3. No pleural effusion. 4. Additional findings as above. Venous doppler 07/09/23 Deep venous thrombus within the left peroneal veins. Cardiac event monitor 06/15/23 Sinus rhythm with a mild intraventricular conduction delay rates 50-120 bpm with average 80 bpm A count of the supraventricular and ventricular ectopy could not be calculated secondary to artifact. A premature supraventricular beat was noted during the recording. No reports of any complex or significant arrhythmia. No atrial fibrillation. No inappropriate pauses Patient reported complaints of lightheadedness, shortness of breath, and dizzy- all SR with rates 77-96 bpm Head and neck CTA 02/02/20 Unremarkable CTA of the neck. No aneurysm, dissection, high-grade stenosis or proximal branch occlusion. Patent dural sinuses.
[~2024-02-16 06:44] MED LIST changes: -ACET-24 PO; -ADAL1KIT INJ; +BUPIVACAINE 0.5 % 5 MG/1 ML PF 10ML VIAL ONE; -METH1TAB81 PO; -MULT-506 PO; -NRV5 PO; -RBX500 PO; -SPR25 PO; -VTMD1000 PO
--- NOTE | 2024-02-16 06:45 | History & Physical Bridge Note ---
Date of Service February 16, 2024 History & Physical Bridge Note I have examined the patient, reviewed the History & Physical and in the interval since the performance of the History & Physical I have noted the following changes of clinical significance: no changes noted
[2024-02-16] MEDS: LR 60ML/HR IV SCH (07:24)
[2024-02-16] MEDS: ACETAMINOPHEN 500 MG TAB PO SCH ×2 (07:25→13:28)
[2024-02-16] MEDS: Scopolamine 1 MG TDSY TD SCH (07:25)
[2024-02-16] MEDS: CeleBREX 200 MG CAP PO SCH (07:25)
[2024-02-16] MEDS: FAMOTIDINE 20 MG TAB PO SCH (07:25)
[2024-02-16] MEDS: METOCLOPRAMIDE HCL 10 MG TABLET PO SCH (07:25)
[2024-02-16] MEDS: dexAMETHasone**PF** 10 MG/ML VIAL IV SCH (07:29)
[2024-02-16] MEDS ORDERED: ePHEDrine sulfate 50 MG/ML AMP IV PRN (07:50)
[2024-02-16] MEDS ORDERED: fentaNYL citrate PF 100 MCG/2 ML VIAL IV PRN (07:50)
[2024-02-16] MEDS ORDERED: ONDANSETRON INJ 2 MG/ML 2 ML VIAL IV PRN ×2 (07:50→12:56)
[2024-02-16] MEDS ORDERED: PROMETHAZINE HCL 6.25 MG in SODIUM CHLORIDE 0.9% 50 ML IV PRN (07:50)
[2024-02-16] MEDS ORDERED: ATROPINE SULFATE 0.1 MG/ML 10ML SYR IV PRN (07:50)
[2024-02-16] MEDS ORDERED: MIDAZOLAM HCL 1 MG/ML 2ML VIAL ONE (08:08)
[2024-02-16] MEDS ORDERED: fentaNYL citrate PF 100 MCG/2 ML VIAL ONE (08:08)
[2024-02-16] MEDS: TRANEXAMIC ACID 1,000 MG **IV Pre-op IV SCH (09:28)
[2024-02-16] MEDS: ceFAZolin 2000MG 2,000 MG/15 ML SYR IV SCH ×2 (09:41→17:15)
[2024-02-16] MEDS ORDERED: PROPOFOL IV EMULSION 10 MG/ML 20 ML VIAL IV ONE (09:51)
[2024-02-16] MEDS ORDERED: PROPOFOL IV EMULSION 10 MG/ML 100 ML VIAL IV ONE (09:51)
[2024-02-16] MEDS: BUPIVACAINE/EPINEPHRINE 0.5% MPF 1:200,000 30 ML VIAL ONE (10:19)
[2024-02-16] MEDS ORDERED: ONDANSETRON INJ 2 MG/ML 2 ML VIAL ONE (11:22)
--- NOTE | 2024-02-16 11:28 | Operative Report ---
PG Post Operative Report Pre & Post Diagnosis Operation Date: 02/16/24 08:50 Pre-Op Diagnosis: Right Hip Degenerative Joint Disease Post-Op Diagnosis: Right Hip Degenerative Joint Disease I identified the patient and participated in the time-out.: Yes Procedure Operation Date: 02/16/24 08:50 Actual Procedures p Right Total Hip Arthroplasty, Uncemented(Right) - Magdiel Haile MD Surgeon Magdiel Haile MD Pegger Jimmy Hernandez PA-C Estimated Blood Loss 200 Findings Consistent with Post-Op Diagnosis Specimens Right femoral head sent for pathology Anesthesia Type Spinal MAC Complications none Disposition Accompanied Patient To Recovery: No Indications Patient is a 43-year-old female with underlying rheumatoid disease status of your history of increased right hip pain discomfort that is gotten worse over the past 6 to 12 months. She failed conservative measures. X-rays show advanced right hip arthritis. She would like to proceed with total hip arthroplasty. Description of Procedure Operative implants consists of: 1 Biomet G7 size 54 mm acetabular shell. 2. 6.5 cancellous acetabular screws 1 of 35 mm in length and 125 mm length. 3. 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 4. Highly cross-linked polyethylene liner with a 54 mm outer diameter and 32 mm inner diameter. 5. DePuy Corail size 12 KLA femoral stem. 6. +5/36 mm ceramic articular ball. The patient was taken the op room, identified, placed on the operative table in the supine position. All contact orders were properly padded. IV antibiotics right by anesthesia team. Spinal anesthetic and the implement holding area. A Mcfarlane catheter was placed in sterile fashion. The patient then placed in the left lateral decubitus position. An axillary roll was placed. A Stulberg hip positioner was used for positioning. The right hip and leg were then prepped and draped in usual sterile fashion. A posterolateral approach to the right hip was then performed to a curvilinear incision centered over the greater trochanter. Sharp dissection Through subcutaneous tissue down to the IT band and gluteal fascia. The IT band gluteal fascia was incised longitudinally in line with skin incision. The underlying greater bursa was excised. The piriformis injection rotators along with the posterior joint capsule then released on the posterior aspect of the hip as a single layer. Great care was taken throughout the procedure protect the sciatic nerve at all times. The hip was internally rotated and dislocated. Femoral neck osteotomy cut was made with a Final Cut about 12 mm above the lesser trochanter. Femoral head was removed and sent for pathology. The femur was retracted anteriorly. Attention drawn the acetabulum. The acetabular labrum was excised. The pulmonary fat was excised. Sequential reaming the acetabulum was then performed again with a size 45 and progressing up to 53. I reamed a little bit with the 54 reamer and then placed a 54 mm cup in about 40 degrees lateral opening of 20 degrees of anteversion. It was fixed with two 6.5 screws. A trial liner was placed. Attention drawn the femur. The proximal femur was entered with a Dynamighty cutter followed by canal finder. Then broached beginning with a size 8 and progressing up to 12. Got excellent fit of the 12. We trialed the hip and the +5 articular ball provided appropriate soft tissue tension, leg lengths, and was stable in full extension and external rotation and flexion to 90 degrees internal Tatian over [address] I elected to place these implants. All trial implants were removed. An apex hole limiter was placed. Highly cross-linked polyethylene liner was placed. A size 12 KLA femoral stem was impacted in position. +5/36 mm ceramic articular ball was placed. It was located and once again found to be stable. Attention turned toward closing. Wounds irrigated jagdish also pulsatile lavage solution. I did inject closely with 60 cc of half percent Marcaine with epinephrine. Patient did receive 1 g of tranexamic acid. The posterior capsule and external rotators were then repaired through drill holes in the posterior trochanter with #2 Tycron suture. The IT band gluteal fascia then closed normal PDS suture running fashion for subcutaneous tissue then closed with 2 layers with a deep layer #2 Vicryl suture in the subcutaneous tissues were closed with 2-0 Dexon suture in a buried interrupted fashion. Skin was closed skin lenka. Legs then cleaned and dried and a Prevena VAC dressing was applied. The patient then the transferred to the recovery in stable condition. Patient tolerated procedure well and there were no complications. Jimmy Hernandez, my physician hotel administrative assistant, was present for the entire procedure. His assistance was essential and required for appropriate patient positioning, prepping and draping, surgical exposure, performing the technical details of the operation, placement the implants, closure of the wound, and placement of the sterile bandage. I attest to the content of the Intraoperative Record and any orders documented therein. Any exceptions are noted below.
--- NOTE | 2024-02-16 12:09 | XRay Report ---
XR hip 1V RT w pelvis CLINICAL HISTORY: IN PACU - Post Surgical TECHNIQUE: 1 view of the right hip and single frontal view of the pelvis were obtained. Comparison: Comparison is made to CT abdomen pelvis 01/30/2024 FINDINGS: Patient is status post total hip arthroplasty with expected postsurgical changes including soft tissu e swelling and subcutaneous emphysema. IMPRESSION: Expected postoperative appearance status post placement of total hip arthroplasty. ACT 112: Negative or not required by law. Electronically signed by: Clyde Pagan M.D. 02/16/2024 12:07 PM
--- NOTE | 2024-02-16 12:17 | Anesthesiology Progress Note ---
Date of Service February 16, 2024 Anesthesia Post Procedure Vital Signs Vital Signs: Temp Pulse Resp BP Pulse Ox O2 Del Method 02/16/24 12:15 65 19 100/65 99 Room Air 02/16/24 12:05 70 17 117/62 98 Room Air 02/16/24 11:55 63 16 104/60 99 Room Air 02/16/24 11:45 72 18 110/58 L 99 Room Air 02/16/24 11:35 67 12 108/57 L 96 Room Air 02/16/24 11:25 77 12 118/59 L 98 Room Air 02/16/24 11:18 36.3 C L 83 16 103/63 96 Room Air 02/16/24 07:02 36.7 C 78 20 131/89 95 Room Air Pain Intensity Right Hip: Pain Intensity: 4 Transfer of Care Handoff Completed per policy Notes Mental Status: alert / awake / arousable Patient Amnestic to Procedure: Yes Nausea / Vomiting: adequately controlled Pain: adequately controlled Airway Patency, RR, SpO2: stable & adequate BP & HR: stable & adequate Hydration State: stable & adequate Neuraxial Anesthesia: was administered and sensory block is resolving Anesthetic Complications: no major complications apparent and Pt Satisfied with anesthetic care
[2024-02-16] MEDS ORDERED: EPINEPHrine ADULT AUTO-INJECT 0.3 MG SYR IM PRN (12:56)
[2024-02-16] MEDS ORDERED: MAGNESIUM HYDROXIDE SUSP 30 ML UDC PO PRN (12:56)
[2024-02-16] MEDS ORDERED: METOCLOPRAMIDE HCL INJ 5 MG/ML 2 ML VIAL IV PRN (12:56)
[2024-02-16] MEDS ORDERED: CYCLOBENZAPRINE HCL 5 MG TAB PO PRN (12:56)
[2024-02-16] MEDS ORDERED: bisacodyL 10 MG SUPP PR PRN (12:56)
[2024-02-16] MEDS ORDERED: ALBUTEROL 0.083% NEBU SOLN 3 ML VIAL INH PRN (12:56)
[2024-02-16] MEDS ORDERED: traMADol HCL 50 MG TABLET PO PRN (12:56)
[2024-02-16] MEDS ORDERED: ALUMINUM/MAGNESIUM SUSP 30 ML UDC PO PRN (12:56)
[2024-02-16] MEDS ORDERED: NALOXONE HCL 0.4 MG/1 ML VIAL/CARP IV PRN (12:56)
[2024-02-16] MEDS ORDERED: diphenhydrAMINE Capsule 25 MG CAP PO PRN ×2 (12:56)
[2024-02-16] MEDS ORDERED: ONDANSETRON 4 MG OD TAB PO PRN (12:56)
[2024-02-16] MEDS: SODIUM CHLORIDE 0.9% 1,000 ML IV SCH (13:18)
[2024-02-16] MEDS: KETOROLAC 30 MG/ML VIAL IV SCH (13:26)
[2024-02-16] MEDS ORDERED: ACETAMINOPHEN 500 MG TAB PO SCH (14:00)
[2024-02-16] MEDS: methylPREDNISolone 4 MG TAB PO SCH (14:22)
[2024-02-16] MEDS: Scopolamine CHECK PATCH PLACEMENT SCH (16:09)
[2024-02-16] MEDS: ASCORBIC ACID 500 MG TAB PO SCH (17:14)
[2024-02-16] MEDS: TRANEXAMIC ACID / 0.7% NACL 1,000 MG/100 ML BAG IV SCH (17:15)
[2024-02-16] MEDS: HYDROmorphone INJ 0.5 MG/0.5 ML SYR IV PRN (19:53)
[2024-02-16] MEDS ORDERED: SENNA 8.6 MG TAB PO SCH (21:00)
[2024-02-16] MEDS: oxyCODONE HCL IR 5 MG TAB (IMMEDIATE RELEASE) PO PRN (21:12)
[2024-02-16] MEDS: SENNA 8.6 MG TAB PO SCH (21:13)
[2024-02-16] MEDS: DOCUSATE SODIUM 100 MG CAP PO SCH (21:13)
[2024-02-17 07:05] LABS: Basophils # (auto) 0.02 K/uL (0.00-0.20); Basophils % (auto) 0.1 %; Eosinophils # (auto) 0.01 K/uL (0.00-0.50); Eosinophils % (auto) 0.1 %; Hematocrit (blood only) 35.8 % (37.0-47.0); Hemoglobin 12.5 g/dl (12.0-16.0); Immature Granulocytes # (auto) 0.05 K/uL (0.01-0.20); Immature Granulocytes % (auto) 0.3 %; Lymphocytes # (auto) 2.43 K/uL (1.20-3.40); Lymphocytes % (auto) 15.2 %; Mean Corpuscular Hemoglobin 31.9 pg (25.0-34.0); Mean Corpuscular Hgb Conc 34.9 g/dL (32.0-36.0); Mean Corpuscular Volume 91.3 fL (80.0-100.0); Mean Platelet Volume 9.3 fL (9.4-12.4); Monocytes # (auto) 1.41 K/uL (0.11-0.59); Monocytes % (auto) 8.8 %; Neutrophils # (auto) 12.09 K/uL (1.40-6.50); Neutrophils % (auto) 75.5 %; Platelet Count 249 K/uL (130-400); RDW Coefficient of Variation 12.4 % (11.5-14.5); RDW Standard Deviation 41.2 fL (36.4-46.3); Red Blood Count 3.92 M/uL (4.20-5.40); White Blood Count 16.01 K/ul (4.8-10.8)
[2024-02-17 07:23] LABS: BUN Creatinine Ratio 20.9 (10-20); Calcium 8.2 mg/dl (8.6-10.3); Est GFR (African American) 123.9 ml/min; Est GFR (Non-African American) 106.9 ml/min; Potassium 3.6 mmol/L (3.5-5.1)
[2024-02-17] MEDS: dexAMETHasone 10 MG in SYRINGE 0 ML IV SCH (07:33)
[2024-02-17 08:14] VITALS: TEMP 97.7
[2024-02-17] MEDS: MULTIVITAMIN TAB PO SCH (08:35)
[2024-02-17] MEDS: CHLORTHALIDONE 25 MG TAB PO SCH (08:38)
[2024-02-17] MEDS ORDERED: ACETAMINOPHEN 500 MG TAB PO SCH (09:00)
[2024-02-17] MEDS: APIXABAN 2.5 MG TAB PO SCH (12:08)
--- NOTE | 2024-02-17 12:16 | Orthopedic Progress Note ---
Date of Service February 17, 2024 Assessment & Plan (1) Status post right hip replacement: Plan: 43-year-old female with underlying rheumatoid disease with a factor V Leiden abnormality now well postop day 1 from right total hip replacement. She is doing pretty well. Apparently she had some degree of reaction to the Prevena dressing and it has been removed. Her leg looks good. She looks comfortable. Plan: 1. DVT prophylaxis including thigh teds, SCDs, and we will start her back on her Eliquis. 2. PT/OT. Weight-bear as tolerated right shoulder protocol. 3. Pain control doing okay with current pain regimen. 4. Disposition plan to discharge home with some home health later today. Admission and Anticipated Discharge Date Admission Date: February 16, 2024 Subjective 43-year-old female now postop day 1 from a right uncemented total hip replacement. She is doing pretty well this morning. She had kind of a rough night as show she apparently had some degree of reaction to the Prevena dressing. They removed it. She is doing better this morning. Pain is controlled. Therapy is going pretty well. No chest pain or shortness of breath. Physical Exam Physical Exam: Physical exam shows a pleasant middle-age female. She is sitting up in her bedside and looks pretty comfortable. Examination of the right hip reveals a dressing be dry clean and in place. Thigh is soft and supple. Leg lengths are equal. She is neurologically intact. Respiratory: normal respiratory effort, lungs clear to auscultation Gastrointestinal (Abdomen): normal bowel sounds, soft, nontender, no hepatosplenomegaly Results & Data Vital Signs (Past 12 Hours) Vital Signs Temp Pulse Pulse Resp BP Pulse Ox O2 Del Method 02/17/24 08:11 36.5 C 55 L 20 112/72 97 Room Air 02/17/24 03:08 36.7 C 66 16 106/56 L 97 Room Air 02/16/24 23:45 36.7 C 78 20 123/71 96 Room Air Laboratory Results Hemoglobin is 12.5. Hematocrit is 35.8. Electrolytes are stable.
[2024-02-17 13:45] VITALS: BP 118/72; PULSE 82; RESP 17; O2SAT 96
--- NOTE | 2024-02-19 07:46 | Discharge Summary ---
Date of Service February 19, 2024 Discharge Data Procedures Performed Operation Date: 02/16/24 08:50 Actual Procedures p Right Total Hip Arthroplasty, Uncemented(Right) - Magdiel Haile MD Hospital Course (1) Status post right hip replacement: This is a 43 year old patient admitted on 02/16/24 and underwent total hip arthroplasty. She tolerated the procedure well and there were no complications. Transferred to the PACU post op and later to the orthopedic floor for further care. She was given ancef for antibiotic prophylaxis. She was also given NINA stockings, SCDs, and eliquis for DVT prophylaxis. Hemoglobin, hematocrit, and vital signs were monitored during her hospital stay and remained stable. Did not require any blood transfusions. There were no complications during her hospital stay. She did have some reaction to the prevena vac dressing which was then removed. By post op day #1 the patient was tolerating a low sodium diet, pain was reasonably controlled with oral pain medicine, and she was participating in physical therapy. On post op day #1 the patient was discharged home and set up with home health care. She was given printed discharge instructions including prescriptions for extra strength tylenol, cefadroxil, oxycodone, zofran, and senokot. Continue hip precautions. Continue physical therapy, weight bearing as tolerated. Continue NINA stockings. Follow up approximately 2 weeks post op or sooner if there are problems or concerns. Coding Level of Care Code None Diagnoses Status post right hip replacement Z96.641
== END 2024-02-17 14:49 | disposition home health service (06) ==
LOC: 3E 06:44 → ASU 06:44